=== PATIENT | male | born 1960 | race Caucasian/White ===

== ENCOUNTER → 2016-10-22 | Outpatient (REF) | payer BC ==
[2016-10-22 12:24] LABS: ALBUMIN 3.6 GM/DL (3.2-5.2); ALBUMIN/GLOBULIN RATIO 1.09 (1.00-1.93); ALKALINE PHOSPHATASE 83 U/L (45-117); ALT/SGPT 26 U/L (12-78); ANION GAP 10 MEQ/L (8-16); AST/SGOT 16 U/L (15-37); BILIRUBIN,TOTAL 0.8 MG/DL (0.2-1.0); BLOOD UREA NITROGEN 11 MG/DL (7-18); CALCIUM LEVEL 8.8 MG/DL (8.5-10.1); CARBON DIOXIDE LEVEL 26 MEQ/L (21-32); CHLORIDE LEVEL 105 MEQ/L (98-107); CHOLESTEROL LEVEL 99 MG/DL (<200); CREATININE FOR GFR 0.63 MG/DL (0.70-1.30); GLOMERULAR FILTRATION RATE > 60.0 (>56); GLUCOSE, FASTING 122 MG/DL (70-105); SODIUM LEVEL 141 MEQ/L (136-145); TOTAL PROTEIN 6.9 GM/DL (6.4-8.2); TRIGLYCERIDES LEVEL 77 MG/DL (<150)
== END ==
LOC: M SFHCCLAY 08:50
PROVIDERS: ATTEND Family Medicine
DX: E11.65 Type 2 diabetes mellitus with hyperglycemia (principal); N40.0 Benign prostatic hyperplasia without lower urinary tract symptoms
CPT/HCPCS: 80053; 80061; 82043; 83036; 84443; G0103

== ENCOUNTER → 2016-10-25 | Outpatient (REF) | payer BC | LOC: M SFHCCLAY 15:09 | PROVIDERS: ATTEND Family Medicine | DX: N30.00 Acute cystitis without hematuria (principal) ==

== ENCOUNTER → 2017-01-27 | Outpatient (REF) | payer BC ==
[2017-01-27 14:08] LABS: ALBUMIN 3.6 GM/DL (3.2-5.2); ALBUMIN/GLOBULIN RATIO 1.09 (1.00-1.93); ALKALINE PHOSPHATASE 87 U/L (45-117); ALT/SGPT 20 U/L (12-78); ANION GAP 6 MEQ/L (8-16); AST/SGOT 11 U/L (15-37); BILIRUBIN,TOTAL 0.7 MG/DL (0.2-1.0); BLOOD UREA NITROGEN 14 MG/DL (7-18); CALCIUM LEVEL 8.9 MG/DL (8.5-10.1); CARBON DIOXIDE LEVEL 30 MEQ/L (21-32); CHLORIDE LEVEL 106 MEQ/L (98-107); CHOLESTEROL LEVEL 143 MG/DL (<200); CREATININE FOR GFR 0.78 MG/DL (0.70-1.30); GLOMERULAR FILTRATION RATE > 60.0 (>56); GLUCOSE, FASTING 100 MG/DL (70-105); POTASSIUM SERUM 4.1 MEQ/L (3.5-5.1); SODIUM LEVEL 142 MEQ/L (136-145); TOTAL PROTEIN 6.9 GM/DL (6.4-8.2); TRIGLYCERIDES LEVEL 78 MG/DL (<150)
== END ==
LOC: M SFHCCLAY 06:59
PROVIDERS: ATTEND Family Medicine
DX: E78.2 Mixed hyperlipidemia (principal); E11.65 Type 2 diabetes mellitus with hyperglycemia; N40.0 Benign prostatic hyperplasia without lower urinary tract symptoms; E66.01 Morbid (severe) obesity due to excess calories
CPT/HCPCS: 80053; 80061; 83036; 84443; G0103

== ENCOUNTER → 2017-01-31 | Outpatient (REF) | payer BC ==
[2017-01-31 12:00] LABS: BASO # 0.1 K/mm3 (0.0-0.2); BASO % 0.7 % (0.0-1.0); EOS # 0.2 K/mm3 (0.0-0.50); EOS % 2.9 % (0.0-3.0); LARGE UNSTAINED CELL # 0.2 K/mm3 (0.0-0.4); LARGE UNSTAINED CELL % 2.1 % (0.0-4.0); LYMPH % 35.3 % (24.0-44.0); MEAN CORPUSCULAR HEMOGLOBIN 29.1 pg (27.0-33.0); MEAN CORPUSCULAR HGB CONC 33.2 g/dl (32.0-36.5); MEAN CORPUSCULAR VOLUME 87.4 fl (80.0-96.0); MONO # 0.6 K/mm3 (0.0-0.8); MONO % 7.6 % (0.0-5.0); NEUTROPHILS # 4.2 K/mm3 (1.8-7.7); NEUTROPHILS % 51.4 % (36.0-66.0); PLATELET COUNT, AUTOMATED 262 k/mm3 (150-450); WHITE BLOOD COUNT 8.1 K/mm3 (4.0-10.0)
[2017-01-31 12:15] LABS: VITAMIN B12 LEVEL 879 PG/ML (247-911)
[2017-01-31 12:52] LABS: ALBUMIN 3.8 GM/DL (3.2-5.2); ALBUMIN/GLOBULIN RATIO 1.19 (1.00-1.93); ALKALINE PHOSPHATASE 90 U/L (45-117); ALT/SGPT 20 U/L (12-78); ANION GAP 8 MEQ/L (8-16); AST/SGOT 11 U/L (15-37); BILIRUBIN,TOTAL 0.8 MG/DL (0.2-1.0); BLOOD UREA NITROGEN 17 MG/DL (7-18); CALCIUM LEVEL 9.1 MG/DL (8.5-10.1); CARBON DIOXIDE LEVEL 29 MEQ/L (21-32); CHLORIDE LEVEL 104 MEQ/L (98-107); FERRITIN 148 NG/ML (26-388); GLOMERULAR FILTRATION RATE > 60.0 (>56); GLUCOSE, FASTING 102 MG/DL (70-105); POTASSIUM SERUM 4.2 MEQ/L (3.5-5.1); SODIUM LEVEL 141 MEQ/L (136-145)
[2017-02-01 12:45] LABS: PRETREATED FOLATE FOR RBCFOL 12.9 NG/ML
== END ==
LOC: M LABDRAWC 11:35
PROVIDERS: ATTEND Surgery
DX: K91.2 Postsurgical malabsorption, not elsewhere classified (principal); Z98.84 Bariatric surgery status; E55.9 Vitamin D deficiency, unspecified

== ENCOUNTER → 2017-08-26 | Outpatient (REF) | payer BC ==
[2017-08-26 14:09] LABS: ALBUMIN 4.3 GM/DL (3.2-5.2); ALBUMIN/GLOBULIN RATIO 1.43 (1.00-1.93); ALKALINE PHOSPHATASE 96 U/L (45-117); ALT/SGPT 21 U/L (12-78); ANION GAP 7 MEQ/L (8-16); AST/SGOT 14 U/L (7-37); BILIRUBIN,TOTAL 0.6 MG/DL (0.2-1.0); BLOOD UREA NITROGEN 23 MG/DL (7-18); CALCIUM LEVEL 9.4 MG/DL (8.5-10.1); CARBON DIOXIDE LEVEL 30 MEQ/L (21-32); CHLORIDE LEVEL 104 MEQ/L (98-107); CHOLESTEROL LEVEL 164 MG/DL (<200); CHOLESTEROL RISK RATIO 3.037 (<5); CREATININE FOR GFR 0.79 MG/DL (0.70-1.30); GLOMERULAR FILTRATION RATE > 60.0 (>56); GLUCOSE, FASTING 122 MG/DL (70-105); HDL CHOLESTEROL 54 MG/DL (>40); LDL CHOLESTEROL 96.4 MG/DL (<100); NON-HDL-C 110 MG/DL; POTASSIUM SERUM 4.3 MEQ/L (3.5-5.1); PSA SCREENING 0.25 NG/ML (< 4.0); SODIUM LEVEL 141 MEQ/L (136-145); TOTAL PROTEIN 7.3 GM/DL (6.4-8.2); TRIGLYCERIDES LEVEL 68 MG/DL (<150)
[2017-08-26 15:41] LABS: ESTIMATED AVERAGE GLUCOSE 114 MG/DL (60-110); HEMOGLOBIN A1c 5.6 %
== END ==
LOC: M SFHCCLAY 07:10
DX: E78.2 Mixed hyperlipidemia (principal); E11.9 Type 2 diabetes mellitus without complications; N40.0 Benign prostatic hyperplasia without lower urinary tract symptoms; E66.01 Morbid (severe) obesity due to excess calories
CPT/HCPCS: 84443

== ENCOUNTER 2018-02-17 01:29 | Inpatient (IN) | payer BC ==
[2018-02-17 01:53] LABS: BASO # 0.1 10^3/uL (0.0-0.2); BASO % 0.4 % (0.0-1.0); EOS # 0.3 10^3/uL (0.0-0.50); HEMATOCRIT 41.1 % (42.0-52.0); HEMOGLOBIN 14.3 g/dl (13.5-17.5); IMMATURE GRANULOCYTE % 0.3 % (0-3.0); LYMPH # 3.9 10^3/uL (1.5-4.5); LYMPH % 33.6 % (24.0-44.0); MEAN CORPUSCULAR HEMOGLOBIN 29.5 pg (27.0-33.0); MEAN CORPUSCULAR HGB CONC 34.8 g/dl (32.0-36.5); MEAN CORPUSCULAR VOLUME 84.9 fl (80.0-96.0); MONO # 0.9 10^3/uL (0.0-0.8); MONO % 7.4 % (0.0-5.0); NEUTROPHILS # 6.4 10^3/uL (1.8-7.7); NEUTROPHILS % 55.3 % (36.0-66.0); PLATELET COUNT, AUTOMATED 237 10^3/uL (150-450); RED BLOOD COUNT 4.84 10^6/uL (4.30-6.10); RED CELL DISTRIBUTION WIDTH 12.7 % (11.5-14.5); WHITE BLOOD COUNT 11.5 10^3/uL (4.0-10.0)
[2018-02-17] MEDS: MORPHINE 10 MG/ML 1ML VIAL (J2270) IV (02:18)
[2018-02-17] MEDS: METOCLOPRAMIDE INJ 10MG/2ML VIAL (J2765) IV (02:18)
[2018-02-17] MEDS: NS 500 ML IV (02:19)
[2018-02-17 02:21] LABS: ALBUMIN 3.7 GM/DL (3.2-5.2); ALBUMIN/GLOBULIN RATIO 1.06 (1.00-1.93); ALKALINE PHOSPHATASE 90 U/L (45-117); ALT/SGPT 22 U/L (12-78); AMYLASE 65 U/L (25-115); ANION GAP 12 MEQ/L (8-16); AST/SGOT 15 U/L (7-37); BILIRUBIN,DIRECT 0.1 MG/DL (0.0-0.2); BILIRUBIN,TOTAL 0.5 MG/DL (0.2-1.0); BLOOD UREA NITROGEN 19 MG/DL (7-18); CALCIUM LEVEL 8.5 MG/DL (8.5-10.1); CARBON DIOXIDE LEVEL 23 MEQ/L (21-32); CHLORIDE LEVEL 107 MEQ/L (98-107); CK-MB VALUE MASS 1.5 NG/ML (<3.6); CPK CREATINE PHOSPHOKINASE 94 U/L (39-308); CREATININE FOR GFR 0.96 MG/DL (0.70-1.30); GLOMERULAR FILTRATION RATE > 60.0 (>56); GLUCOSE, FASTING 187 MG/DL (70-100); LIPASE 312 U/L (73-393); MB/CK RELATIVE INDEX 1.59 (< OR =4); POTASSIUM SERUM 3.5 MEQ/L (3.5-5.1); SODIUM LEVEL 142 MEQ/L (136-145); TOTAL PROTEIN 7.2 GM/DL (6.4-8.2); TROPONIN I < 0.02 NG/ML (< 0.10)
[2018-02-17 02:23] LABS: INR 1.01; PROTHROMBIN TIME 13.4 SECONDS (12.1-14.4)
[2018-02-17] MEDS: HYDROMORPHONE HCL 0.5 MG/ 0.5 ML SYRINGE (J1170 PER 1) IV (02:42)
[2018-02-17] MEDS: diphenhydrAMINE INJ 50MG/ML VIAL (J1200) IV (02:42)
[2018-02-17] MEDS: HALOPERIDOL 5 MG/ML VIAL (J1630) IV (02:42)
[2018-02-17] MEDS ORDERED: ISOVUE-370 76% 100ML VIAL (Q9967) As Ordered (02:56)
[2018-02-17] MEDS: GASTROGRAFIN SOLUTION 30ML PO ×2 (03:00→03:34)
[2018-02-17 03:10] LABS: LACTIC ACID SEPSIS PROTOCOL 3.6 MMOL/L (0.4-2.0)
[2018-02-17] MEDS: NS 1,000 ML IV ×3 (03:15→16:34)
[2018-02-17 07:00] LABS: LACTIC ACID SEPSIS PROTOCOL 1.6 MMOL/L (0.4-2.0)
[2018-02-17] MEDS: PIPERACILLIN/TAZOBACTAM SOD 3.375 GM in D5W MINI-BAG PLUS 50 ML IV ×3 (07:29→20:58)
[2018-02-17] MEDS: D5W/0.45% SODIUM CHLORIDE 1,000 ML IV (08:43)
[2018-02-17 08:59] LABS: ALBUMIN 3.3 GM/DL (3.2-5.2); ALBUMIN/GLOBULIN RATIO 1.22 (1.00-1.93); ALKALINE PHOSPHATASE 83 U/L (45-117); ALT/SGPT 19 U/L (12-78); AST/SGOT 10 U/L (7-37); BILIRUBIN,DIRECT 0.2 MG/DL (0.0-0.2); BILIRUBIN,TOTAL 0.5 MG/DL (0.2-1.0); LIPASE 78 U/L (73-393)
[2018-02-17] MEDS ORDERED: MORPHINE 4 MG/ML 1ML VIAL/SYRINGE (J2270) IV (09:30)
[2018-02-17] MEDS ORDERED: PROMETHAZINE INJ 25 MG/ML VIAL (J2550) IV (09:30)
[2018-02-17] MEDS ORDERED: ONDANSETRON 4MG/2ML VIAL (J2405) IV (09:30)
[2018-02-17] MEDS ORDERED: METOCLOPRAMIDE INJ 10MG/2ML VIAL (J2765) IV (09:30)
[2018-02-17] MEDS: PANTOPRAZOLE 40MG INJ (PROTONIX) (C9113) IV (16:34)
[2018-02-17] MEDS: SUCRALFATE SUSP 1GM/10ML UD PO ×2 (16:35→18:38)
[2018-02-17] MEDS: TAMSULOSIN 0.4 MG CAP PO (20:58)
[2018-02-17] MEDS: MORPHINE 4 MG/ML 1ML VIAL/SYRINGE (J2270) IV (20:58)
[2018-02-18] MEDS: SUCRALFATE SUSP 1GM/10ML UD PO ×4 (00:16→17:29)
[2018-02-18] MEDS: NS 1,000 ML IV ×2 (02:00→02:25)
[2018-02-18] MEDS: PIPERACILLIN/TAZOBACTAM SOD 3.375 GM in D5W MINI-BAG PLUS 50 ML IV ×4 (02:24→20:53)
[2018-02-18 06:44] LABS: HEMATOCRIT 35.4 % (42.0-52.0); MEAN CORPUSCULAR HGB CONC 34.2 g/dl (32.0-36.5); MEAN CORPUSCULAR VOLUME 87.6 fl (80.0-96.0); PLATELET COUNT, AUTOMATED 185 10^3/uL (150-450); RED BLOOD COUNT 4.04 10^6/uL (4.30-6.10); RED CELL DISTRIBUTION WIDTH 12.9 % (11.5-14.5); WHITE BLOOD COUNT 9.8 10^3/uL (4.0-10.0)
[2018-02-18 06:49] LABS: HEMOGLOBIN 12.1 g/dl (13.5-17.5)
[2018-02-18 07:13] LABS: ALBUMIN 2.8 GM/DL (3.2-5.2); ALKALINE PHOSPHATASE 68 U/L (45-117); ALT/SGPT 17 U/L (12-78); ANION GAP 7 MEQ/L (8-16); AST/SGOT 9 U/L (7-37); BILIRUBIN,TOTAL 0.9 MG/DL (0.2-1.0); BLOOD UREA NITROGEN 13 MG/DL (7-18); CALCIUM LEVEL 7.9 MG/DL (8.5-10.1); CARBON DIOXIDE LEVEL 28 MEQ/L (21-32); CHLORIDE LEVEL 109 MEQ/L (98-107); CREATININE FOR GFR 0.82 MG/DL (0.70-1.30); GLOMERULAR FILTRATION RATE > 60.0 (>56); GLUCOSE, FASTING 100 MG/DL (70-100); POTASSIUM SERUM 3.5 MEQ/L (3.5-5.1); SODIUM LEVEL 144 MEQ/L (136-145); TOTAL PROTEIN 5.6 GM/DL (6.4-8.2)
[2018-02-18] MEDS: PANTOPRAZOLE 40MG INJ (PROTONIX) (C9113) IV (08:30)
[2018-02-18] MEDS: TAMSULOSIN 0.4 MG CAP PO (20:53)
[2018-02-19] MEDS: SUCRALFATE SUSP 1GM/10ML UD PO ×2 (00:10→06:07)
[2018-02-19] MEDS: PIPERACILLIN/TAZOBACTAM SOD 3.375 GM in D5W MINI-BAG PLUS 50 ML IV ×2 (02:35→08:09)
[2018-02-19 06:50] LABS: HEMATOCRIT 35.8 % (42.0-52.0); HEMOGLOBIN 12.2 g/dl (13.5-17.5); MEAN CORPUSCULAR HEMOGLOBIN 29.6 pg (27.0-33.0); MEAN CORPUSCULAR HGB CONC 34.1 g/dl (32.0-36.5); MEAN CORPUSCULAR VOLUME 86.9 fl (80.0-96.0); PLATELET COUNT, AUTOMATED 184 10^3/uL (150-450); RED BLOOD COUNT 4.12 10^6/uL (4.30-6.10); RED CELL DISTRIBUTION WIDTH 12.5 % (11.5-14.5); WHITE BLOOD COUNT 9.5 10^3/uL (4.0-10.0)
[2018-02-19 07:11] LABS: ALBUMIN 2.8 GM/DL (3.2-5.2); ALBUMIN/GLOBULIN RATIO 1.04 (1.00-1.93); ALKALINE PHOSPHATASE 69 U/L (45-117); ALT/SGPT 15 U/L (12-78); ANION GAP 7 MEQ/L (8-16); AST/SGOT 9 U/L (7-37); BILIRUBIN,TOTAL 0.7 MG/DL (0.2-1.0); BLOOD UREA NITROGEN 9 MG/DL (7-18); CALCIUM LEVEL 8.1 MG/DL (8.5-10.1); CARBON DIOXIDE LEVEL 28 MEQ/L (21-32); CHLORIDE LEVEL 109 MEQ/L (98-107); CREATININE FOR GFR 0.76 MG/DL (0.70-1.30); GLOMERULAR FILTRATION RATE > 60.0 (>56); GLUCOSE, FASTING 91 MG/DL (70-100); POTASSIUM SERUM 3.5 MEQ/L (3.5-5.1); SODIUM LEVEL 144 MEQ/L (136-145); TOTAL PROTEIN 5.5 GM/DL (6.4-8.2)
[2018-02-19] MEDS: PANTOPRAZOLE 40MG INJ (PROTONIX) (C9113) IV (09:22)
== END 2018-02-19 10:40 | disposition home or self-care (01) ==
LOC: M PED 02-18 18:21 → M ED 01:29 → M ED INP 09:25 → M MS5PR 16:00
DX: K80.00 Calculus of gallbladder with acute cholecystitis without obstruction (principal); E11.9 Type 2 diabetes mellitus without complications; E78.5 Hyperlipidemia, unspecified; N40.0 Benign prostatic hyperplasia without lower urinary tract symptoms; K21.9 Gastro-esophageal reflux disease without esophagitis; E78.00 Pure hypercholesterolemia, unspecified; Z98.84 Bariatric surgery status; Z79.899 Other long term (current) drug therapy

== ENCOUNTER → 2018-03-14 | Outpatient (REF) | payer BC ==
[2018-03-14 12:02] LABS: TOTAL 25(OH) VITAMIN D 34.3 NG/ML (30.0-100.0)
[2018-03-14 12:09] LABS: MAGNESIUM LEVEL 2.1 MG/DL (1.8-2.4)
== END ==
LOC: M LABDRAWC 11:32
DX: K21.9 Gastro-esophageal reflux disease without esophagitis (principal); K31.89 Other diseases of stomach and duodenum
CPT/HCPCS: 83735

== ENCOUNTER → 2018-03-14 | Outpatient (REF) | payer BC ==
[2018-03-14 12:31] LABS: ALBUMIN 3.8 GM/DL (3.2-5.2); ALBUMIN/GLOBULIN RATIO 1.23 (1.00-1.93); ALKALINE PHOSPHATASE 85 U/L (45-117); ALT/SGPT 22 U/L (12-78); ANION GAP 7 MEQ/L (8-16); AST/SGOT 11 U/L (7-37); BILIRUBIN,TOTAL 0.7 MG/DL (0.2-1.0); BLOOD UREA NITROGEN 16 MG/DL (7-18); CALCIUM LEVEL 8.9 MG/DL (8.5-10.1); CARBON DIOXIDE LEVEL 30 MEQ/L (21-32); CHLORIDE LEVEL 107 MEQ/L (98-107); CHOLESTEROL LEVEL 144 MG/DL (<200); CREATININE FOR GFR 0.76 MG/DL (0.70-1.30); GLOMERULAR FILTRATION RATE > 60.0 (>56); GLUCOSE, FASTING 102 MG/DL (70-100); HDL CHOLESTEROL 45 MG/DL (>40); LDL CHOLESTEROL 84.8 MG/DL (<100); NON-HDL-C 99 MG/DL; POTASSIUM SERUM 4.3 MEQ/L (3.5-5.1); SODIUM LEVEL 144 MEQ/L (136-145); TOTAL PROTEIN 6.9 GM/DL (6.4-8.2); TRIGLYCERIDES LEVEL 71 MG/DL (<150)
[2018-03-14 12:39] LABS: ESTIMATED AVERAGE GLUCOSE 105 MG/DL (60-110); HEMOGLOBIN A1c 5.3 %
== END ==
LOC: M SFHCCLAY 07:00
DX: E78.2 Mixed hyperlipidemia (principal); E11.9 Type 2 diabetes mellitus without complications; E66.01 Morbid (severe) obesity due to excess calories
CPT/HCPCS: 84443

== ENCOUNTER 2018-06-08 10:20 | Day surgery (SDC) | payer BC ==
[~2018-06-08 10:20] MED LIST: LIDOCAINE 2% MDV 20 ML VIAL As Ordered; PROPOFOL 200 MG/20 ML VIAL As Ordered
[2018-06-08] MEDS: NS 1,000 ML IV (10:30)
== END 2018-06-08 13:27 | disposition home or self-care (01) ==
LOC: M OPP 13:27
DX: K22.70 Barrett's esophagus without dysplasia (principal); Z98.84 Bariatric surgery status; E11.9 Type 2 diabetes mellitus without complications; K21.9 Gastro-esophageal reflux disease without esophagitis; N40.0 Benign prostatic hyperplasia without lower urinary tract symptoms; M17.0 Bilateral primary osteoarthritis of knee; Z79.899 Other long term (current) drug therapy
CPT/HCPCS: 43239

== ENCOUNTER → 2018-09-15 | Outpatient (REF) | payer BC ==
[~2018-09-15] MED LIST changes: +AUGM500T34 PO; +CALC600T60 PO; +FLOM0.4C39 PO; -LIDOCAINE 2% MDV 20 ML VIAL As Ordered; +OMEP20CA3 PO; +OMEP40CA2 PO; -PROPOFOL 200 MG/20 ML VIAL As Ordered; +TAMSULOSIN; +VITA100066 PO; +VITMTA PO
[2018-09-15 12:03] LABS: BASO # 0.1 10^3/uL (0.0-0.2); BASO % 0.8 % (0.0-1.0); EOS # 0.3 10^3/uL (0.0-0.50); EOS % 3.5 % (0.0-3.0); HEMATOCRIT 40.9 % (42.0-52.0); HEMOGLOBIN 13.8 g/dl (13.5-17.5); LYMPH # 3.1 10^3/uL (1.5-4.5); LYMPH % 41.2 % (24.0-44.0); MEAN CORPUSCULAR HEMOGLOBIN 29.6 pg (27.0-33.0); MEAN CORPUSCULAR HGB CONC 33.7 g/dl (32.0-36.5); MEAN CORPUSCULAR VOLUME 87.6 fl (80.0-96.0); MONO # 0.7 10^3/uL (0.0-0.8); MONO % 9.7 % (0.0-5.0); NEUTROPHILS # 3.3 10^3/uL (1.8-7.7); NEUTROPHILS % 44.5 % (36.0-66.0); PLATELET COUNT, AUTOMATED 230 10^3/uL (150-450); RED BLOOD COUNT 4.67 10^6/uL (4.30-6.10); WHITE BLOOD COUNT 7.5 10^3/uL (4.0-10.0)
[2018-09-15 12:16] LABS: MALB URINE SIEMENS 18.3 MG/L; MAU/CREAT RATIO 7.6 MCG/MG (0.0-30.0)
[2018-09-15 12:52] LABS: ALBUMIN 3.9 GM/DL (3.2-5.2); ALT/SGPT 23 U/L (12-78); BILIRUBIN,TOTAL 0.6 MG/DL (0.2-1.0); BLOOD UREA NITROGEN 13 MG/DL (7-18); CALCIUM LEVEL 8.6 MG/DL (8.5-10.1); CARBON DIOXIDE LEVEL 28 MEQ/L (21-32); CHLORIDE LEVEL 107 MEQ/L (98-107); CHOLESTEROL LEVEL 142 MG/DL (<200); CREATININE FOR GFR 0.77 MG/DL (0.70-1.30); FERRITIN 107 NG/ML (26-388); GLOMERULAR FILTRATION RATE > 60.0 (>56); GLUCOSE, FASTING 100 MG/DL (70-100); HDL CHOLESTEROL 50 MG/DL (>40); IRON (FE) 106 UG/DL (65-175); LDL CHOLESTEROL 79 MG/DL (<100); NON-HDL-C 92 MG/DL; POTASSIUM SERUM 4.2 MEQ/L (3.5-5.1); SODIUM LEVEL 142 MEQ/L (136-145); TOTAL PROTEIN 6.6 GM/DL (6.4-8.2); TRIGLYCERIDES LEVEL 65 MG/DL (<150)
[2018-09-15 13:29] LABS: HEMOGLOBIN A1c 5.6 %
[2018-09-18 10:33] LABS: VITAMIN B12 LEVEL 1155 PG/ML (232-1245)
== END ==
LOC: M SFHCCLAY 07:06
PROVIDERS: ATTEND Nurse Practitioner Family
DX: Z98.84 Bariatric surgery status (principal); E78.2 Mixed hyperlipidemia; E11.9 Type 2 diabetes mellitus without complications

== ENCOUNTER 2018-09-17 19:39 | Inpatient (IN) | payer BC ==
[~2018-09-17] VITALS: Ht 198.1 cm; Wt 103.8 kg
[~2018-09-17 19:39] MED LIST changes: -VITMTA PO
[2018-09-17] MEDS ORDERED: HALOPERIDOL 5 MG/ML VIAL (J1630) IV STA (19:58)
[2018-09-17] MEDS ORDERED: diphenhydrAMINE INJ 50MG/ML VIAL (J1200) IV STA (19:58)
[2018-09-17] MEDS ORDERED: MORPHINE 2 MG/ML 1ML SYRINGE (J2270) IV ONE (20:00)
[2018-09-17] MEDS ORDERED: NS 1,000 ML IV ONE ×2 (20:00→21:30)
[2018-09-17 20:15] LABS: BASO # 0.1 10^3/uL (0.0-0.2); BASO % 0.4 % (0.0-1.0); EOS # 0.1 10^3/uL (0.0-0.50); EOS % 0.9 % (0.0-3.0); HEMATOCRIT 42.6 % (42.0-52.0); HEMOGLOBIN 14.8 g/dl (13.5-17.5); LYMPH # 2.4 10^3/uL (1.5-4.5); LYMPH % 16.4 % (24.0-44.0); MEAN CORPUSCULAR HEMOGLOBIN 29.8 pg (27.0-33.0); MEAN CORPUSCULAR HGB CONC 34.7 g/dl (32.0-36.5); MEAN CORPUSCULAR VOLUME 85.7 fl (80.0-96.0); MONO # 0.7 10^3/uL (0.0-0.8); MONO % 4.5 % (0.0-5.0); NEUTROPHILS # 11.2 10^3/uL (1.8-7.7); NEUTROPHILS % 77.5 % (36.0-66.0); PLATELET COUNT, AUTOMATED 248 10^3/uL (150-450); RED BLOOD COUNT 4.97 10^6/uL (4.30-6.10); WHITE BLOOD COUNT 14.5 10^3/uL (4.0-10.0)
[2018-09-17 21:06] LABS: ALBUMIN 4.2 GM/DL (3.2-5.2); ALT/SGPT 27 U/L (12-78); BILIRUBIN,DIRECT 0.1 MG/DL (0.0-0.2); BILIRUBIN,TOTAL 0.5 MG/DL (0.2-1.0); BLOOD UREA NITROGEN 16 MG/DL (7-18); CALCIUM LEVEL 8.8 MG/DL (8.5-10.1); CARBON DIOXIDE LEVEL 24 MEQ/L (21-32); CHLORIDE LEVEL 104 MEQ/L (98-107); CPK CREATINE PHOSPHOKINASE 133 U/L (39-308); CREATININE FOR GFR 0.91 MG/DL (0.70-1.30); GLOMERULAR FILTRATION RATE > 60.0 (>56); GLUCOSE, FASTING 180 MG/DL (70-100); LIPASE 171 U/L (73-393); MB/CK RELATIVE INDEX 1.65 (< OR =4); SODIUM LEVEL 139 MEQ/L (136-145); TOTAL PROTEIN 7.2 GM/DL (6.4-8.2); TROPONIN I < 0.02 NG/ML (< 0.10)
[2018-09-17] MEDS ORDERED: MORPHINE 4 MG/ML 1ML VIAL/SYRINGE (J2270) IV ONE (22:00)
[2018-09-17] MEDS ORDERED: METOCLOPRAMIDE INJ 10MG/2ML VIAL (J2765) IV ONE (22:00)
--- NOTE | 2018-09-17 22:14 | REPVR ---
EXAM: US Abdomen Limited, Right Upper Quadrant EXAM DATE/TIME: 09/17/2018 9:17 PM CLINICAL HISTORY: 57 years old, male; Pain; Abdominal pain; Acute; Additional info: Biliary eval TECHNIQUE: Real-time ultrasound of the abdomen with image documentation. Examination was focused on the right upper quadrant. COMPARISON: GALLBLADDER US 02/17/2018 10:32 AM FINDINGS: Liver: The liver is mildly diffusely echogenic relative to the right kidney, findings consistent with steatosis. Gallbladder: Cholelithiasis and sludge within the lumen of the gallbladder. Thickened gallbladder wall. Positive sonographic Kearney's sign. Findings consistent with acute cholecystitis. Common bile duct: Common bile duct measures 3.3 mm. Pancreas: Pancreas largely obscured by overlying bowel gas. Right kidney: Right kidney measures 11.7 x 5.3 x 5.3 cm. IMPRESSION: 1. Hepatic steatosis. 2. Cholelithiasis and sludge within the lumen of the gallbladder. Thickened gallbladder wall. Positive sonographic Kearney's sign. Findings consistent with acute cholecystitis. Electronically signed by: Giovanni Dumont On 09/17/2018 22:14:04 PM
[2018-09-17] MEDS: GASTROGRAFIN SOLUTION 30ML PO SCH (22:56)
[2018-09-17] MEDS ORDERED: VITMTA PO (23:20)
[2018-09-17] MEDS ORDERED: OMEP40CA2 PO (23:20)
--- NOTE | 2018-09-18 01:38 | REPVR ---
EXAM: CT Abdomen and Pelvis Without Contrast EXAM DATE/TIME: 09/18/2018 12:31 AM CLINICAL HISTORY: 57 years old, male; Pain; Abdominal pain; Additional info: Pain/emesis TECHNIQUE: Axial computed tomography images of the abdomen and pelvis without contrast. All CT scans at this facility use at least one of these dose optimization techniques: automated exposure control; mA and/or kV adjustment per patient size (includes targeted exams where dose is matched to clinical indication); or iterative reconstruction. Coronal and sagittal reformatted images were created and reviewed. COMPARISON: CT ABD/PEL W/IV ORAL CONTRAS 02/17/2018 5:04 AM FINDINGS: Lower thorax: No suspicious mass or airspace process in the visualized lung bases. ABDOMEN: Liver: Noncontrast liver shows no obvious lesion. Gallbladder and bile ducts: Gallstones are present in the gallbladder lumen. No adjacent fluid or duct dilatation. Pancreas: Noncontrast pancreas shows no obvious mass or adjacent fluid. Spleen: Noncontrast spleen shows no obvious focal deformity. Adrenals: Stable 1 cm left adrenal adenoma. Right adrenal is normal in size. Kidneys and ureters: Kidneys show no stone or hydronephrosis. Stomach and bowel: No evidence of small bowel obstruction. No evidence of acute diverticulitis. Postsurgical changes of gastric bypass procedure are present. Appendix: Normal caliber appendix is identified, with no adjacent inflammation. PELVIS: Bladder: Bladder appears normal. Bladder appears normal. Reproductive: Unremarkable as visualized. ABDOMEN and PELVIS: Intraperitoneal space: No pneumoperitoneum. Bones/joints: Bony structures show no acute fracture or destructive process. Soft tissues: Unremarkable. Vasculature: Normal. No abdominal aortic aneurysm. Lymph nodes: Normal. No enlarged lymph nodes. Other findings: Evaluation of solid organs is limited without IV contrast. IMPRESSION: 1. Cholelithiasis without evidence of biliary obstruction. 2. No acute bowel process or evidence of complication regarding the gastric diversion procedure Electronically signed by: Art Aguilera On 09/18/2018 01:37:48 AM
[2018-09-18] MEDS ORDERED: ONDANSETRON 4MG/2ML VIAL (J2405) IV PRN (03:30)
[2018-09-18 04:30] VITALS: BP 159/76
[2018-09-18] MEDS: MORPHINE 4 MG/ML 1ML VIAL/SYRINGE (J2270) IV PRN ×2 (04:38→13:07)
[2018-09-18] MEDS: NS 1,000 ML IV SCH ×2 (04:38→15:48)
--- NOTE | 2018-09-18 04:50 | HPEPDOC ---
[facility] Medical History & Physical Date of Admission Sep 18, 2018 Other Provider Dictating/admitting: Valerie Orosco M.D. Attending Physician: JIE NGUYEN MD History and Physical CHIEF COMPLAINT: Abdominal pain HISTORY OF PRESENT ILLNESS: Patient is a 57-year-old man with history of diabetes, hyperlipidemia, sleep apnea, Goodrich's esophagus, status post gastric bypass done in 2015. He comes complaining of nausea with vomiting of recently ingested food, nonbilious, nonblood. Symptom started 3 AM yesterday. He denies any association with recently ingested food. He refers right upper quadrant pain initially, before radiating to the epigastrium. He denies any associated fever and chills. No dizziness, no chest pain, no palpitations, no cough or shortness of breath. No change in his bowel habits. No change in his urinary habits. He was evaluated in the emergency room with a liter of IV fluids and imaging, which reveals cholelithiasis with cholecystitis. General surgery on consult was consu lted, Dr. Lau recommendation is continue with IV fluids and he will see patient in the morning. PAST MEDICAL HISTORY: Per HPI PAST SURGICAL HISTORY: 1. Left knee arthroplasty 1979. 2. Endoscopy 2015. 3. Gastric bypass July 2016. 4. Umbilical hernia repair June 2017. SOCIAL HISTORY: Former smoker, quit over 10 years. Denies use of alcohol and illicit drugs. FAMILY HISTORY: Father: , unknown cause. Mother: , unknown cause. Siblings: 3 brothers and one sister, 2 brothers from cancer. ALLERGIES: Please see below. REVIEW OF SYSTEMS: He denies any associated fever and chills. No dizziness, no chest pain, no palpitations, no cough or shortness of breath. No change in his bowel habits. Other systems reviewed. Negative. A 12 point review of systems done. HOME MEDICATIONS: Please see below. PHYSICAL EXAMINATION: VITAL SIGNS: Temperature 98.6, pulse 122, respiratory rate 18, blood pressure 119/78, pulse oximetry 100% on room air. GENERAL APPEARANCE: An obese middle aged man, now lying calmly in bed, not in any apparent distress. He is not pale, anicteric and afebrile HEENT: Atraumatic. Neck: Supple. LUNGS: Clear to auscultation bilaterally. CARDIOVASCULAR: S1 and 2 heard, no murmurs, rubs or gallops. ABDOMEN: Obese, soft, tenderness at RUQ and epigastrum, not distended. Bowel sounds hypoactive. MUSCULOSKELETAL: Apparently within normal limits. EXTREMITIES: No pedal edema, 2+ bilateral pedal pulses noted. NEUROLOGICAL: Awake, alert, oriented 3. PSYCHIATRIC: Normal affect LABORATORY DATA: See below. IMAGING: CT abdomen and pelvis without contrast: 1. Cholelithiasis without evidence of biliary obstruction. 2. No acute bowel process or evidence of complication regarding the gastric diversion procedure Abdominal ultrasound: 1. Hepatic steatosis. 2. Cholelithiasis and sludge within the lumen of the gallbladder. Thickened gallbladder wall. Positive sonographic Kearney's sign. Findings consistent with acute cholecystitis. Chest x-ray: No acute process. MICROBIOLOGY: Please see below. ASSESSMENT: 57-year-old man with diabetes and lipid disorder, sleep apnea, Barretts esophagus, status post gastric bypass, comes in complaining of vomiting of one days duration. Physical exam significant for right upper qu adrant/epigastric tenderness. CT abdomen and pelvis/abdominal ultrasound reveals cholecystitis. DIAGNOSES: 1. Gastritis, likely secondary to cholecystitis 2. Acute Cholecystitis . PLAN: 1. I will admit patient to the medical floors under care of Dr Nguyen. 2. Patient remained nothing by mouth for now. 3. Will continue with IV normal saline to run at 100 mils per hour. 4. Cholecystitis, Gen. surgery consult placed to Dr. Lau. Patient may be a candidate for cholecystectomy after medical management. 5. Diabetes: Patient is nothing by mouth for now, we will continue with fingersticks glucose monitoring without coverage insulin should only be used when necessary. 6. GI prophylaxis with Protonix. 7. Will ensure adequate pain control. No indication for antibiotics at this time. 8. DVT prophylaxis, TEDs. 9. As soon as patient can tolerate by mouth she she will restart outpatient medications. 10. IV Zofran when necessary nausea and vomiting. 11. Further management will be per patient's clinical course. Vital Signs Vital Signs Date Time Temp Pulse Resp B/P (MAP) Pulse Ox O2 Delivery O2 Flow Rate FiO2 09/18/18 00:14 98.6 122 18 119/78 (92) 100 Room Air Laboratory Data Labs 24H Laboratory Tests 2 09/17/18 20:08: Lactic Acid Level 3.3*H 09/17/18 20:09: Immature Granulocyte % (Auto) 0.3, White Blood Count 14.5H, Red Blood Count 4.97, Hemoglobin 14.8, Hematocrit 42.6, Mean Corpuscular Volume 85.7, Mean Corpuscular Hemoglobin 29.8, Mean Corpuscular Hemoglobin Concent 34.7, Red Cell Distribution Width 12.5, Platelet Count 248, Neutrophils (%) (Auto) 77.5H, L ymphocytes (%) (Auto) 16.4L, Monocytes (%) (Auto) 4.5, Eosinophils (%) (Auto) 0.9, Basophils (%) (Auto) 0.4, Neutrophils # (Auto) 11.2H, Lymphocytes # (Auto) 2.4, Monocytes # (Auto) 0.7, Eosinophils # (Auto) 0.1, Basophils # (Auto) 0.1, Nucleated Red Blood Cells % (auto) 0.0, Anion Gap 11, Glomerular Filtration Rate > 60.0, Calcium Level 8.8, Aspartate Amino Transf (AST/SGOT) 22, Alanine Aminotransferase (ALT/SGPT) 27, Alkaline Phosphatase 78, Total Bilirubin 0.5, Direct Bilirubin 0.1, Total Creatine Kinase 133, Creatine Kinase MB 2.0, Creatine Kinase MB Relative Index 1.65, Troponin I < 0.02, Total Protein 7.2, Albumin 4.2, Albumin/Globulin Ratio 1.40, Lipase 171 CBC/BMP Laboratory Tests 09/17/18 20:09 Red Blood Count 4.97, Mean Corpuscular Volume 85.7, Mean Corpuscular Hemoglobin 29.8, Mean Corpuscular Hemoglobin Concent 34.7, Red Cell Distribution Width 12.5, Neutrophils (%) (Auto) 77.5 H, Lymphocytes (%) (Auto) 16.4 L, Monocytes (%) (Auto) 4.5, Eosinophils (%) (Auto) 0.9, Basophils (%) (Auto) 0.4, Neutrophils # (Auto) 11.2 H, Lymphocytes # (Auto) 2.4, Monocytes # (Auto) 0.7, Eosinophils # (Auto) 0.1, Basophils # (Auto) 0.1 Home Medications Scheduled Calcium Carbonate (Calcium) 600 Mg Tab, 600 MG PO DAILY Cholecalciferol (Vitamin D) 1,000 Unit Tab, 1,000 UNIT PO DAILY Multivitamins *[facility] STOCKED* (Thera M Plus *[facility] STOCKED*) 1 Tab Tab, 1 TAB PO DAILY Omeprazole (Omeprazole) 40 Mg Cap, 40 MG PO DAILY Tamsulosin Hydrochloride (Flomax) 0.4 Mg Cap, 0.4 MG PO QHS Allergies Coded Allergies: No Known Drug Allergy (Verified Allergy, Unknown, 09/17/18) VALERIE OROSCO MD Sep 18, 2018 03:28
[2018-09-18] MEDS: PANTOPRAZOLE 40MG INJ (PROTONIX) (C9113) IV SCH (05:41)
[2018-09-18 06:40] LABS: HEMATOCRIT 38.7 % (42.0-52.0); HEMOGLOBIN 13.5 g/dl (13.5-17.5); MEAN CORPUSCULAR HEMOGLOBIN 30.1 pg (27.0-33.0); MEAN CORPUSCULAR HGB CONC 34.9 g/dl (32.0-36.5); MEAN CORPUSCULAR VOLUME 86.4 fl (80.0-96.0); PLATELET COUNT, AUTOMATED 232 10^3/uL (150-450); RED BLOOD COUNT 4.48 10^6/uL (4.30-6.10); WHITE BLOOD COUNT 13.4 10^3/uL (4.0-10.0)
[2018-09-18 06:50] LABS: INR 1.05; PROTHROMBIN TIME 13.8 SECONDS (12.1-14.4)
[2018-09-18 06:54] LABS: BLOOD UREA NITROGEN 14 MG/DL (7-18); CARBON DIOXIDE LEVEL 26 MEQ/L (21-32); CHLORIDE LEVEL 107 MEQ/L (98-107); CREATININE FOR GFR 0.71 MG/DL (0.70-1.30); GLOMERULAR FILTRATION RATE > 60.0 (>56); GLUCOSE, FASTING 116 MG/DL (70-100); POTASSIUM SERUM 3.7 MEQ/L (3.5-5.1); SODIUM LEVEL 140 MEQ/L (136-145)
--- NOTE | 2018-09-18 08:03 | REP ---
Portable chest, 09:28 p.m., single AP view, the patient upright: The lung hays are clear. Cardiac size is upper normal for portable positioning. The silvana, mediastinum, and skeletal structures are unremarkable. No mediastinal air is identified on this single frontal view. Impression: Negative portable chest. Electronically Signed by Rahul Conn MD 09/18/2018 07:55 A
[2018-09-18] MEDS: CIPROFLOXACIN 400 MG in APPROPRIATE DILUENT 1 EA IV SCH ×2 (09:24→22:14)
[2018-09-18] MEDS: metroNIDAZOLE 500 MG in APPROPRIATE DILUENT 1 EA IV SCH ×2 (09:25→18:23)
[2018-09-18 14:00] VITALS: BP 141/82
[2018-09-18] MEDS: KETOROLAC 30 MG/ML VIAL (J1885) IV PRN (15:49)
--- NOTE | 2018-09-18 16:12 | IPNPDOC ---
Text Note Date of Service The patient was seen on 09/18/18. NOTE Patient seen this morning, and denies any acute changes since admission. Abdo tim pain improving mild epigastric discomforts, however no rebound guarding or rigidity. Denies any other complaints. Given the patient's leukocytosis, lactic acidosis on admission that's improved, as well as tachycardia on admission that's improved, and right upper quadrant ultrasound with notable acute cholecystitis, I have placed the patient on Cipro/Flagyl. It appears that Dr. Lau has been consulted on admission. Toradol for pain. The patient is hemodynamically stable. I have signed this patient out to Dr. Cisse, as this is a patient of Ariella Sahara. The family medicine team will continue to follow this patient thereafter. VS,Fishbone, I+O VS, Fishbone, I+O Laboratory Tests 09/17/18 20:09 Red Blood Count 4.97, Mean Corpuscular Volume 85.7, Mean Corpuscular Hemoglobin 29.8, Mean Corpuscular Hemoglobin Concent 34.7, Red Cell Distribution Width 12.5, Neutrophils (%) (Auto) 77.5 H, Lymphocytes (%) (Auto) 16.4 L, Monocytes (%) (Auto) 4.5, Eosinophils (%) (Auto) 0.9, Basophils (%) (Auto) 0.4, Neutrophils # (Auto) 11.2 H, Lymphocytes # (Auto) 2.4, Monocytes # (Auto) 0.7, Eosinophils # (Auto) 0.1, Basophils # (Auto) 0.1 09/18/18 06:11 Red Blood Count 4.48, Mean Corpuscular Volume 86.4, Mean Corpuscular Hemoglobin 30.1, Mean Corpuscular Hemoglobin Concent 34.9, Red Cell Distribution Width 12.5, Calcium Level 8.0 L Vital Signs Date Time Temp Pulse Resp B/P (MAP) Pulse Ox O2 Delivery O2 Flow Rate FiO2 09/18/18 14:00 98.3 49 18 141/82 (101) 98 09/18/18 04:07 Room Air I&O- Last 24 Hours up to 6 AM 09/18/18 06:00 Intake Total 1000 ml Balance 1000 ml JIE NGUYEN MD Sep 18, 2018 16:12
[2018-09-18 22:00] VITALS: BP 135/68
[2018-09-19] MEDS: metroNIDAZOLE 500 MG in APPROPRIATE DILUENT 1 EA IV SCH ×3 (01:59→17:19)
[2018-09-19] MEDS: NS 1,000 ML IV SCH ×2 (02:02→09:13)
[2018-09-19] MEDS: PANTOPRAZOLE 40MG INJ (PROTONIX) (C9113) IV SCH (05:59)
[2018-09-19 06:00] VITALS: BP 108/56
--- NOTE | 2018-09-19 07:49 | CR ---
DATE OF CONSULTATION: 09/18/2018 The patient was admitted in the middle of the night with some epigastric pain and pain all across his upper abdomen to the hospital service and has had a similar episode with admission about 6 months ago. However, at this time, he states that the pain really did start in his right upper quadrant and radiated up into his epigastric area into his back. His lactic acid was elevated initially but it dropped down to normal. He notices that the pain was quite severe and he had nausea, vomiting with multiple episodes of vomiting he states over 10-15. He did not have any hematemesis. CT scan did not reveal an obstructive looking picture or a volvulus. CT scan revealed no significant inflammation of his gallbladder but the ultrasound showed possible thickening of the gallbladder wall. PAST MEDICAL HISTORY: Significant for: History of gastric bypass. Umbilical hernia repair. Left knee surgery. Upper endoscopy. Diabetes mellitus. Hyperlipidemia. Sleep apnea. Goodrich's esophagus. MEDICATIONS: Include: - calcium - vitamin D - multivitamins - omeprazole - Flomax PHYSICAL EXAM: Reveals a 57-year-old male who looks stated age. HEENT is unremarkable. Neck: Supple without adenopathy. Lungs: Clear to auscultation without crackles, wheezes or rhonchi. Heart is regular without murmur. Abdomen is soft, nondistended. He really does not have any significant tenderness or guarding in the right upper quadrant or in the epigastric area at this point even to deep palpation. He states that this has relatively resolved overnight. He had another episode earlier in the day today that caused some exacerbation but had gotten some pain medication and once again noticed that most of the pain is gone away. Extremities: Warm, well-perfused. IMPRESSION AND PLAN: The patient had evidence of abdominal pain. I do feel that the gallbladder is somewhat contracted on the ultrasound. It is hard to tell if this is truly cholecystitis but I feel that his history is much more consistent with a bout of cholecystitis. I am not sure why he developed a second episode of pain as well as his white count being elevated significantly like this suggests that I should see much more of an inflammatory process in his gallbladder. Thus at this point, I would like to get a HIDA scan in the morning, we will see what that shows and depending on what that shows, next appropriate action might be to proceed with operative intervention while he is here in the hospital, i.e. laparoscopic cholecystectomy or possibly proceeding as an outpatient. We will see how he does overnight and plan on the HIDA in the morning.
[2018-09-19] MEDS: CIPROFLOXACIN 400 MG in APPROPRIATE DILUENT 1 EA IV SCH ×2 (09:12→22:30)
--- NOTE | 2018-09-19 11:28 | IPNPDOC ---
Subjective Date Seen The patient was seen on 09/19/18. Subjective Chief Complaint/HPI Pt this morning feeling good. He states that his abd pain has resolved, denies N/V/D. General: Denies: Night Sweats Constitutional: Denies: Chills, Fever Pulmonary: Denies: Dyspnea, Cough Cardiovascular: Denies: Chest Pain, Palpitations Gastrointestinal: Denies: Nausea, Vomiting, Diarrhea Neurological: Reports: Weakness Objective Physical Examination General Exam: Positive: Alert, Cooperative, No Acute Distress ENT Exam: Positive: Mucous membr. moist/pink Chest Exam: Positive: Clear to auscultation, Normal air movement Heart Exam: Positive: Rate Normal, Normal S1, Normal S2 Abdomen Exam: Positive: Normal bowel sounds, Soft, Tenderness (mild on deep palpation in the right upper quadrant) Male Exam: Positive: Edema Extremity Exam: Positive: Edema Assessment /Plan Problems (1) Cholecystitis Status: Acute Response to Treatment: Stable, Improving Problem Text: IV Flagyl, Cipro D2, afebrile, mild leukocystosis, repeat BW today. Cont NPO until surgical status determined Plan/VTE VTE Prophylaxis Ordered?: Yes (TEDS, SCDs) Plan Family Medicine Attending Note: I saw and examined Mr. Chino, discussed with OSCAR Alberts. Agree with her note as documented. The patient reports she is comfortable. He had a discussion this afternoon with Dr. Lau regarding his HIDA scan. That shows cholecystitis. Since this is the second time he's had a flare of abdominal pain related to the cholecystitis they're going to move forward with removing his gallbladder during this admission. The patient anticipates this will be done on . We will need to do a further evaluation and provide a preoperative optimization statement tomorrow. (logistics/shipper) VS, I&O, 24H, Fishbone Vital Signs/I&O Vital Signs Date Time Temp Pulse Resp B/P (MAP) Pulse Ox O2 Delivery O2 Flow Rate FiO2 09/19/18 06:00 97.8 68 18 108/56 (73) 97 09/18/18 04:07 Room Air I&O- Last 24 Hours up to 6 AM 09/19/18 06:00 Intake Total 120 ml Output Total 0 ml Balance 120 ml Laboratory Data 24H LABS Laboratory Tests 2 09/18/18 23:06: Bedside Glucose (Misc Panel) 126H 09/19/18 05:51: Bedside Glucose (Misc Panel) 83 Microbiology Microbiology 09/18/18 Blood Culture, Received Pending 09/18/18 Blood Culture, Received Pending JASVIR HERNANDEZ PA-C Sep 19, 2018 11:28 am Elkin Cisse MD Sep 19, 2018 8:09 pm
[2018-09-19 13:59] LABS: BASO # 0.1 10^3/uL (0.0-0.2); BASO % 0.7 % (0.0-1.0); EOS # 0.1 10^3/uL (0.0-0.50); EOS % 1.9 % (0.0-3.0); HEMATOCRIT 36.7 % (42.0-52.0); HEMOGLOBIN 12.4 g/dl (13.5-17.5); LYMPH # 3.3 10^3/uL (1.5-4.5); LYMPH % 43.9 % (24.0-44.0); MEAN CORPUSCULAR HEMOGLOBIN 29.7 pg (27.0-33.0); MEAN CORPUSCULAR HGB CONC 33.8 g/dl (32.0-36.5); MONO # 0.7 10^3/uL (0.0-0.8); MONO % 9.4 % (0.0-5.0); NEUTROPHILS # 3.3 10^3/uL (1.8-7.7); PLATELET COUNT, AUTOMATED 197 10^3/uL (150-450); RED BLOOD COUNT 4.17 10^6/uL (4.30-6.10); WHITE BLOOD COUNT 7.5 10^3/uL (4.0-10.0)
[2018-09-19 14:24] LABS: ALBUMIN 3.4 GM/DL (3.2-5.2); ALT/SGPT 20 U/L (12-78); BILIRUBIN,TOTAL 0.6 MG/DL (0.2-1.0); BLOOD UREA NITROGEN 16 MG/DL (7-18); CALCIUM LEVEL 8.1 MG/DL (8.5-10.1); CARBON DIOXIDE LEVEL 27 MEQ/L (21-32); CHLORIDE LEVEL 108 MEQ/L (98-107); CREATININE FOR GFR 0.85 MG/DL (0.70-1.30); GLOMERULAR FILTRATION RATE > 60.0 (>56); GLUCOSE, FASTING 100 MG/DL (70-100); POTASSIUM SERUM 3.7 MEQ/L (3.5-5.1); SODIUM LEVEL 141 MEQ/L (136-145); TOTAL PROTEIN 6.1 GM/DL (6.4-8.2)
--- NOTE | 2018-09-19 15:16 | REP ---
HIDA SCAN: Following the intravenous administration of 6.3 millicuries of Technetium 99M Mebrofenin, multiple images of the right upper quadrant are performed up to 3 hours post injection. Biliary to bowel transit is seen at 10 minutes postinjection. I do not see gallbladder activity on any of the imaging performed up to 3 hours post injection. Findings are compatible with cholecystitis. IMPRESSION: Nonvisualization of the gallbladder up to 3 hours post injection. Findings are compatible with cholecystitis. Electronically Signed by Rahul William MD 09/19/2018 05:31 P
--- NOTE | 2018-09-19 21:33 | IPN ---
DATE: 09/19/2018 The patient overall states that since his episode of pain and discomfort in the right subcostal area yesterday he has not had any recurrence of this pain or discomfort. Has not taken any pain medications today and his white count has returned to normal. He did have a little bit of a low grade temperature of 99.3 last night, but otherwise has been back down to normal at 97.8. He otherwise has not had any nausea, no vomiting and no evidence of bilirubinuria. His chemistries remained normal for his liver function tests. PHYSICAL EXAMINATION: Abdomen: Soft, nontender, nondistended. No guarding no rebound. No peritoneal signs are appreciated. He did undergo a HIDA scan today that showed nonfilling of the gallbladder. IMPRESSION AND PLAN The patient had an episode of right upper quadrant pain and tenderness all consistent with acute cholecystitis. However, at this point his clinical exam shows that he has probable resolution of his cholecystitis. The HIDA scan is not confirmatory for this, however, and may be that he has some gallbladder distension causing prevention or maybe ongoing cystic duct obstruction. However, at this point will start him on some clear liquids today. If he has any recurrence of pain and discomfort this would imply that he needs more urgent intervention. I have offered him several options for intervention including operative intervention prior to discharge versus outpatient laparoscopic cholecystectomy. I will discuss this with him early tomorrow morning and see what he would like to proceed with. But at this point, will start him on a clear liquid diet and see if he tolerates this overnight and he does, then either proceeding to a low-fat diet and discharge to home on by mouth (p.o.) antibiotics and p.o. pain medications is reasonable or proceeding with laparoscopic cholecystectomy as an inpatient.
[2018-09-19 22:00] VITALS: BP 120/69
[2018-09-20] VITALS (7 sets, daily range): BP systolic 112–142; BP diastolic 69–78
[2018-09-20] MEDS: metroNIDAZOLE 500 MG in APPROPRIATE DILUENT 1 EA IV SCH ×2 (02:24→10:54)
[2018-09-20] MEDS: NS 1,000 ML IV SCH ×2 (02:25→20:47)
[2018-09-20] MEDS: PANTOPRAZOLE 40MG INJ (PROTONIX) (C9113) IV SCH (05:19)
[2018-09-20 06:57] LABS: BASO # 0.1 10^3/uL (0.0-0.2); BASO % 0.6 % (0.0-1.0); EOS # 0.1 10^3/uL (0.0-0.50); EOS % 1.7 % (0.0-3.0); HEMATOCRIT 35.7 % (42.0-52.0); HEMOGLOBIN 12.2 g/dl (13.5-17.5); LYMPH # 2.8 10^3/uL (1.5-4.5); LYMPH % 33.8 % (24.0-44.0); MEAN CORPUSCULAR HGB CONC 34.2 g/dl (32.0-36.5); MEAN CORPUSCULAR VOLUME 87.9 fl (80.0-96.0); MONO # 0.9 10^3/uL (0.0-0.8); MONO % 10.6 % (0.0-5.0); NEUTROPHILS # 4.3 10^3/uL (1.8-7.7); NEUTROPHILS % 53.1 % (36.0-66.0); PLATELET COUNT, AUTOMATED 196 10^3/uL (150-450); RED BLOOD COUNT 4.06 10^6/uL (4.30-6.10); WHITE BLOOD COUNT 8.1 10^3/uL (4.0-10.0)
[2018-09-20 07:21] LABS: ALBUMIN 3.1 GM/DL (3.2-5.2); ALT/SGPT 73 U/L (12-78); BILIRUBIN,TOTAL 0.9 MG/DL (0.2-1.0); BLOOD UREA NITROGEN 12 MG/DL (7-18); CALCIUM LEVEL 7.9 MG/DL (8.5-10.1); CARBON DIOXIDE LEVEL 25 MEQ/L (21-32); CHLORIDE LEVEL 108 MEQ/L (98-107); CREATININE FOR GFR 0.71 MG/DL (0.70-1.30); GLOMERULAR FILTRATION RATE > 60.0 (>56); GLUCOSE, FASTING 98 MG/DL (70-100); POTASSIUM SERUM 3.6 MEQ/L (3.5-5.1); SODIUM LEVEL 141 MEQ/L (136-145); TOTAL PROTEIN 5.7 GM/DL (6.4-8.2)
--- NOTE | 2018-09-20 07:26 | ECGEPIP ---
Stationary ECG Study [facility] Test Date: 2018-09-20 Pat Name: FIDEL MAXWELL Department: Room: [place] [address] Gender: M [employer] Supervisor: EZRA : [id number] Requested By: Elkin Gentile Order Number: [id number] Reading MD: Babs Saenz Measurements Intervals [place] Rate: 42 P: 48 TN: 116 QRS: 1 QRSD: 109 T: 17 QT: 473 QTc: 397 Interpretive Statements SINUS BRADYCARDIA WITH SHORT TN INTERVAL LOW QRS VOLTAGE IN PRECORDIAL LEADS NEW INCOMPLETE RIGHT BUNDLE BRANCH BLOCK QT SHORTER U WAVES AGAIN PRESENT Electronically Signed On 09-20-2018 7:26:07 EST by Babs Saenz
[2018-09-20] MEDS: CIPROFLOXACIN 400 MG in APPROPRIATE DILUENT 1 EA IV SCH ×2 (09:25→20:46)
[2018-09-20] MEDS ORDERED: LIDOCAINE 2% INJ 100 MG/5 ML SDV (FOR ANES.) As Ordered ONE (14:26)
[2018-09-20] MEDS ORDERED: ONDANSETRON 4MG/2ML VIAL (J2405) As Ordered ONE (14:26)
[2018-09-20] MEDS ORDERED: PROPOFOL 200 MG/20 ML VIAL As Ordered ONE ×2 (14:26→16:27)
[2018-09-20] MEDS ORDERED: ROCURONIUM BROMIDE 50 MG/5 ML VIAL As Ordered ONE (14:26)
[2018-09-20] MEDS ORDERED: NEOSTIGMINE 10 MG/10 ML VIAL (J2710) As Ordered ONE (14:26)
[2018-09-20] MEDS ORDERED: GLYCOPYRROLATE INJ 0.2 MG/ML 2 ML VIAL As Ordered ONE (14:26)
[2018-09-20] MEDS ORDERED: fentaNYL 100 MCG/2 ML INJECTION (J3010) As Ordered ONE ×3 (14:27→17:02)
[2018-09-20] MEDS ORDERED: MIDAZOLAM INJ 2 MG/2 ML VIAL (J2250) As Ordered ONE (14:27)
[2018-09-20] MEDS ORDERED: dexameTHASONE 4 MG/ML 1ML VIAL (J1100) As Ordered ONE (14:27)
[2018-09-20] MEDS ORDERED: BUPIVACAINE/EPIN 0.25% 30 ML VIAL As Ordered ONE (15:11)
[2018-09-20] MEDS ORDERED: ePHEDrine SULFATE 25 MG/5 ML(5MG/ML) SYRINGE As Ordered ONE (15:32)
[2018-09-20] MEDS ORDERED: PERCOCET 5MG/325MG TAB PO PRN ×3 (16:45→17:00)
[2018-09-20] MEDS ORDERED: MEPERIDINE INJ 25 MG/ML VIAL (J2175) IV PRN (17:00)
[2018-09-20] MEDS ORDERED: ONDANSETRON 4MG/2ML VIAL (J2405) IV PRN (17:00)
[2018-09-20] MEDS ORDERED: METOCLOPRAMIDE INJ 10MG/2ML VIAL (J2765) IV PRN (17:00)
[2018-09-20] MEDS ORDERED: LR 1,000 ML IV SCH (17:00)
[2018-09-20] MEDS ORDERED: PERCOCET 5MG/325MG TAB As Ordered ONE (17:02)
[2018-09-20] MEDS: fentaNYL 100 MCG/2 ML INJECTION (J3010) IV PRN ×7 (17:03→21:49)
--- NOTE | 2018-09-20 18:04 | IPNPDOC ---
Subjective Date Seen The patient was seen on 09/20/18. Subjective Chief Complaint/HPI Patient tried some soup, had some abdominal pain that resolved. No pain currently. Currently not drinking any clears. ENT: Denies: Head Aches Pulmonary: Denies: Dyspnea, Cough Cardiovascular: Denies: Chest Pain Gastrointestinal: Reports: Abdominal Pain Objective Physical Examination General Exam: Positive: Alert, Cooperative, No Acute Distress ENT Exam: Positive: Mucous membr. moist/pink Chest Exam: Positive: Clear to auscultation, Normal air movement Heart Exam: Positive: Rate Normal, Normal S1, Normal S2 Abdomen Exam: Positive: Normal bowel sounds, Soft, Tenderness (mild on deep palpation in the right upper quadrant) Male Exam: Positive: Edema Extremity Exam: Positive: Edema Assessment /Plan Problems (1) Cholecystitis Status: Acute Response to Treatment: Stable, Improving Problem Text: 09/20 Patient scheduled for surgery. Continue IV abx. Appreciate Surgery assistance in management of this patient. 09/19 IV Flagyl, Cipro D2, afebrile, mild leukocystosis, repeat BW today. Cont NPO until surgical status determined (2) Diabetes Problem Text: Patient not on any medications. Currently diet controlled. Last A1C was 5.6 09/15/2018 Plan/VTE VTE Prophylaxis Ordered?: Yes (TEDS, SCDs) VS, I&O, 24H, Fishbone Vital Signs/I&O Vital Signs Date Time Temp Pulse Resp B/P (MAP) Pulse Ox O2 Delivery O2 Flow Rate FiO2 09/20/18 17:22 20 09/20/18 17:20 56 119/63 (81) 97 Nasal Cannula 2 09/20/18 17:15 97.1 I&O- Last 24 Hours up to 6 AM 09/20/18 06:00 Intake Total 1920 ml Output Total 0 ml Balance 1920 ml Laboratory Data 24H LABS Laboratory Tests 2 09/20/18 06:03: Bedside Glucose (Misc Panel) 91 09/20/18 06:43: Immature Granulocyte % (Auto) 0.2, White Blood Count 8.1, Red Blood Count 4.06L, Hemoglobin 12.2L, Hematocrit 35.7L, Mean Corpuscular Volume 87.9, Mean Cor puscular Hemoglobin 30.0, Mean Corpuscular Hemoglobin Concent 34.2, Red Cell Distribution Width 12.5, Platelet Count 196, Neutrophils (%) (Auto) 53.1, Lymphocytes (%) (Auto) 33.8, Monocytes (%) (Auto) 10.6H, Eosinophils (%) (Auto) 1.7, Basophils (%) (Auto) 0.6, Neutrophils # (Auto) 4.3, Lymphocytes # (Auto) 2.8, Monocytes # (Auto) 0.9H, Eosinophils # (Auto) 0.1, Basophils # (Auto) 0.1, Nucleated Red Blood Cells % (auto) 0.0, Anion Gap 8, Glomerular Filtration Rate > 60.0, Blood Urea Nitrogen 12, Creatinine 0.71, Sodium Level 141, Potassium Level 3.6, Chloride Level 108H, Carbon Dioxide Level 25, Calcium Level 7.9L, Aspartate Amino Transf (AST/SGOT) 104H, Alanine Aminotransferase (ALT/SGPT) 73, Alkaline Phosphatase 81, Total Bilirubin 0.9, Total Protein 5.7L, Albumin 3.1L, Albumin/Globulin Ratio 1.19 09/20/18 12:06: Bedside Glucose (Misc Panel) 99 CBC/BMP Laboratory Tests 09/20/18 06:43 Red Blood Count 4.06 L, Mean Corpuscular Volume 87.9, Mean Corpuscular Hemoglobin 30.0, Mean Corpuscular Hemoglobin Concent 34.2, Red Cell Distribution Width 12.5, Neutrophils (%) (Auto) 53.1, Lymphocytes (%) (Auto) 33.8, Monocytes (%) (Auto) 10.6 H, Eosinophils (%) (Auto) 1.7, Basophils (%) (Auto) 0.6, Neutrophils # (Auto) 4.3, Lymphocytes # (Auto) 2.8, Monocytes # (Auto) 0.9 H, Eosinophils # (Auto) 0.1, Basophils # (Auto) 0.1, Calcium Level 7.9 L, Aspartate Amino Transf (AST/SGOT) 104 H, Alanine Aminotransferase (ALT/SGPT) 73, Alkaline Phosphatase 81, Total Bilirubin 0.9, Total Protein 5.7 L, Albumin 3.1 L Microbiology Microbiology 09/18/18 Blood Culture - Preliminary, Resulted No Growth after 48 hours. All Specime... 09/18/18 Blood Culture - Preliminary, Resulted No Growth after 48 hours. All Specime... GME ATTESTATION ATTENDING NOTE Family Medicine Attending Note: I was present on site to supervise Daniel Narvaez D.O. (OGME-3). We discussed the history and exam. I confirmed the chaparro elements during my [id number] encounter with the patient. We conferred on the assessment and plan; I agree with the note as documented. Initially we thought this patient was going to the OR tomorrow, however, he had his surgery today. I was able to see him in the postoperative period and he reports he is feeling fine. He is very anxious to go home and is currently pushing to go home tomorrow. I will need to discuss this with the surgeon before making a def initive decision. (motel front desk attendant) DANIEL NARVAEZ DO Sep 20, 2018 6:04 pm Elkin Cisse MD Sep 20, 2018 8:20 pm
[2018-09-21] MEDS: KETOROLAC 30 MG/ML VIAL (J1885) IV PRN (00:12)
[2018-09-21] MEDS: metroNIDAZOLE 500 MG in APPROPRIATE DILUENT 1 EA IV SCH ×2 (01:06→01:07)
[2018-09-21 02:00] VITALS: BP 109/62
[2018-09-21] MEDS: PANTOPRAZOLE 40MG INJ (PROTONIX) (C9113) IV SCH (05:25)
[2018-09-21 06:00] VITALS: BP 140/80
[2018-09-21 06:54] LABS: BASO % 0.2 % (0.0-1.0); EOS % 0.1 % (0.0-3.0); HEMATOCRIT 38.1 % (42.0-52.0); HEMOGLOBIN 12.8 g/dl (13.5-17.5); LYMPH # 1.7 10^3/uL (1.5-4.5); LYMPH % 16.4 % (24.0-44.0); MEAN CORPUSCULAR HEMOGLOBIN 29.6 pg (27.0-33.0); MEAN CORPUSCULAR HGB CONC 33.6 g/dl (32.0-36.5); MONO % 9.4 % (0.0-5.0); NEUTROPHILS # 7.6 10^3/uL (1.8-7.7); NEUTROPHILS % 73.5 % (36.0-66.0); PLATELET COUNT, AUTOMATED 226 10^3/uL (150-450); RED BLOOD COUNT 4.33 10^6/uL (4.30-6.10); WHITE BLOOD COUNT 10.3 10^3/uL (4.0-10.0)
[2018-09-21 07:22] LABS: BLOOD UREA NITROGEN 10 MG/DL (7-18); CALCIUM LEVEL 8.3 MG/DL (8.5-10.1); CARBON DIOXIDE LEVEL 25 MEQ/L (21-32); CHLORIDE LEVEL 107 MEQ/L (98-107); CREATININE FOR GFR 0.71 MG/DL (0.70-1.30); GLOMERULAR FILTRATION RATE > 60.0 (>56); GLUCOSE, FASTING 99 MG/DL (70-100); SODIUM LEVEL 138 MEQ/L (136-145)
[2018-09-21] MEDS ORDERED: PERCOCET PO (08:14)
[2018-09-21] MEDS ORDERED: CIPR-249 PO (08:14)
[2018-09-21 09:26] VITALS: BP 118/74
--- NOTE | 2018-09-21 10:41 | RO ---
DATE OF PROCEDURE: 09/20/2018 PREOPERATIVE DIAGNOSIS: Acute cholecystitis. POSTOPERATIVE DIAGNOSIS: Acute cholecystitis. PROCEDURE: Laparoscopic cholecystectomy. SURGEON: Liang Lau MD ANESTHESIA: General endotracheal anesthesia. ESTIMATED BLOOD LOSS: Minimal. FLUIDS: Crystalloid. BRIEF PROCEDURE SUMMARY: The patient was brought to the operating room and was given general anesthesia. After adequate anesthesia and preoperative antibiotics were given, the patient was prepped and draped in sterile fashion. Next, a supraumbilical incision was made with skin knife. Blunt dissection was carried down to fascia and Veress needle placed into the abdominal cavity, insufflated to 15 mm of pressure. A dilating 5 mm trocar was placed at this time and then a 10 mm trocar was placed over that area. Next, an epigastric and two lateral trocars were placed. There were some adhesions on the right side of the abdomen, which were taken down. There were also some adhesions to the gallbladder, which were taken down. The gallbladder was grasped, retracted superiorly and then the neck of the gallbladder was cleared of peritoneum, which was quite thickened, edematous and quite friable. Eventually, the lateral portion was cleared all the way across the anterior portion and then medially where the cystic artery could be appreciated. A dissector was placed through the space between the artery and the neck of the gallbladder and a good window was appreciated. Further dissection was enabled at that this time, going from lateral to medial and back and forth. Once I was able to see a critical view of safety, the cystic artery was clipped proximally and distally and transected. There was a branch that was following the bed of the gallbladder, which was about 2-3 mm in size, which was clipped as well. The neck of the gallbladder was cleared of peritoneum all the way down to the cystic duct, and then I could feel some stone material within the neck of the gallbladder and thus the cystic duct was milked back. Stones were seen to go back into the neck of the gallbladder. Once this was cleared of stones / debris, the clips were placed on the cystic duct and the gallbladder was removed, after transecting the cystic duct of the gallbladder neck junction. Placed in an EndoCatch bag brought out through the umbilicus. 0 Vicryl was used to close the fascia at the umbilicus after the right upper quadrant was copiously irrigated until clear. The operative field was cleaned and dried. The patient was brought to the recovery room awake, alert, hemodynamically stable. Sponge and needle counts correct times two.
== END 2018-09-21 11:25 | disposition home or self-care (01) | DRG 263 ==
LOC: M ED 19:39 → M ED INP 09-18 03:28 → M MS5PR 09-18 04:21
PROVIDERS: ADMIT Hospitalist; ATTEND Family Medicine
PROC: 0FT44ZZ Resection of Gallbladder, Percutaneous Endoscopic Approach (ICD-10-PCS; principal; 2018-09-20 16:30)
DX: K80.00 Calculus of gallbladder with acute cholecystitis without obstruction (principal); K75.81 Nonalcoholic steatohepatitis (NASH); K22.70 Barrett's esophagus without dysplasia; K29.00 Acute gastritis without bleeding; E11.9 Type 2 diabetes mellitus without complications; E78.5 Hyperlipidemia, unspecified; G47.30 Sleep apnea, unspecified; Z98.84 Bariatric surgery status; Z87.891 Personal history of nicotine dependence; Z79.899 Other long term (current) drug therapy

== ENCOUNTER → 2020-02-01 | Outpatient (REF) | payer BC ==
[~2020-02-01] MED LIST changes: +CIPR-249 PO; +OMEP1CAP73 PO; -OMEP20CA3 PO; -OMEP40CA2 PO; +OMEP40CA97 PO; +PERCOCET PO; +VITMTA PO
[2020-02-01 12:10] LABS: BASO # 0.1 10^3/uL (0.0-0.2); BASO % 0.7 % (0.0-1.0); EOS # 0.2 10^3/uL (0.0-0.5); EOS % 2.4 % (0.0-3.0); HEMOGLOBIN 14.1 g/dl (13.5-17.5); LYMPH # 2.7 10^3/uL (1.5-5.0); LYMPH % 35.4 % (24.0-44.0); MEAN CORPUSCULAR HEMOGLOBIN 29.3 pg (27.0-33.0); MEAN CORPUSCULAR HGB CONC 32.8 g/dl (32.0-36.5); MEAN CORPUSCULAR VOLUME 89.2 fl (80.0-96.0); MONO # 0.8 10^3/uL (0.0-0.8); MONO % 10.2 % (0.0-5.0); NEUTROPHILS # 3.9 10^3/uL (1.5-8.5); PLATELET COUNT, AUTOMATED 263 10^3/uL (150-450); RED BLOOD COUNT 4.82 10^6/uL (4.30-6.10); WHITE BLOOD COUNT 7.7 10^3/uL (4.0-10.0)
[2020-02-01 12:26] LABS: ALBUMIN 3.8 GM/DL (3.2-5.2); ALT/SGPT 21 U/L (12-78); BILIRUBIN,TOTAL 0.6 MG/DL (0.2-1.0); BLOOD UREA NITROGEN 16 MG/DL (7-18); CARBON DIOXIDE LEVEL 28 MEQ/L (21-32); CHLORIDE LEVEL 107 MEQ/L (98-107); CHOLESTEROL LEVEL 161 MG/DL (<200); CHOLESTEROL RISK RATIO 3.425 (<5); CREATININE FOR GFR 0.94 MG/DL (0.70-1.30); FERRITIN 26 NG/ML (26-388); GLOMERULAR FILTRATION RATE > 60.0 (>56); GLUCOSE, FASTING 116 MG/DL (70-100); HDL CHOLESTEROL 47 MG/DL (>40); IRON (FE) 97 UG/DL (65-175); LDL CHOLESTEROL 102 MG/DL (<100); NON-HDL-C 114 MG/DL; POTASSIUM SERUM 4.5 MEQ/L (3.5-5.1); SODIUM LEVEL 139 MEQ/L (136-145); TRIGLYCERIDES LEVEL 62 MG/DL (<150)
[2020-02-01 12:29] LABS: TOTAL 25(OH) VITAMIN D 29.5 NG/ML (30.0-100.0); VITAMIN B12 LEVEL 551 PG/ML (247-911)
[2020-02-01 13:17] LABS: MALB URINE SIEMENS 15.2 MG/L; MAU/CREAT RATIO 8.6 MCG/MG (0.0-30.0)
[2020-02-01 15:01] LABS: HEMOGLOBIN A1c 5.6 %
== END ==
LOC: M SFHCCLAY 07:06
PROVIDERS: ATTEND Nurse Practitioner Family
DX: Z98.84 Bariatric surgery status (principal); E78.2 Mixed hyperlipidemia; E11.9 Type 2 diabetes mellitus without complications

== ENCOUNTER → 2020-05-05 | Outpatient (CLI) | payer BC ==
[~2020-05-05] MED LIST changes: +E-Z-GAS II EFFERVESCENT PACKET (SODIUM BICARB./CITRIC ACID/SIMETHICONE) As Ordered ONE; +E-Z-HD 98% w/w 340GM SUSP BTL As Ordered ONE; +E-Z-PAQUE 96% w/w SUSP 176GM BTL As Ordered ONE
--- NOTE | 2020-05-09 09:07 | REP ---
ESOPHAGRAM DATE: 05/05/2020 This procedure was performed by Gisselle Rodriguez [facility], under the direct supervision of Dr. William. Images were reviewed with Dr. William prior to dictation. A single view PA chest x-ray is submitted as a speech therapist technician film. The superior mediastinal structures are midline. The heart size is within normal limits. The lungs appear clear. Liquid barium and gas-producing granules were given in the erect position, as well as liquid barium in the prone oblique position in order to perform a double-contrast esophagram examination. The oral and pharyngeal stages of deglutition were unremarkable. Esophageal transport is prompt and efficient and there is no esophagitis, stricture, or mucosal ring. There is a small hiatal hernia. No gastroesophageal reflux was visualized during this exam. IMPRESSION: 1. Small hiatal hernia. 0.3 minutes of fluoroscopy time was utilized for this procedure. ROLAND
== END ==
LOC: M RAD 07:18
PROVIDERS: ATTEND Physician Assistant
DX: K22.70 Barrett's esophagus without dysplasia (principal); R11.10 Vomiting, unspecified; K21.9 Gastro-esophageal reflux disease without esophagitis; R19.5 Other fecal abnormalities; Z12.11 Encounter for screening for malignant neoplasm of colon; K44.9 Diaphragmatic hernia without obstruction or gangrene

== ENCOUNTER → 2021-02-20 | Outpatient (REF) | payer BC ==
[~2021-02-20] MED LIST changes: -E-Z-GAS II EFFERVESCENT PACKET (SODIUM BICARB./CITRIC ACID/SIMETHICONE) As Ordered ONE; -E-Z-HD 98% w/w 340GM SUSP BTL As Ordered ONE; -E-Z-PAQUE 96% w/w SUSP 176GM BTL As Ordered ONE; +OMEP40CA4 PO; -OMEP40CA97 PO
[2021-02-20 12:49] LABS: BASO # 0.1 10^3/uL (0.0-0.2); BASO % 0.9 % (0.0-1.0); EOS # 0.2 10^3/uL (0.0-0.5); EOS % 2.3 % (0.0-3.0); HEMATOCRIT 43.3 % (42.0-52.0); HEMOGLOBIN 14.2 g/dl (13.5-17.5); LYMPH % 36.6 % (24.0-44.0); MEAN CORPUSCULAR HEMOGLOBIN 29.2 pg (27.0-33.0); MEAN CORPUSCULAR HGB CONC 32.8 g/dl (32.0-36.5); MEAN CORPUSCULAR VOLUME 88.9 fl (80.0-96.0); MONO # 0.8 10^3/uL (0.0-0.8); NEUTROPHILS # 4.1 10^3/uL (1.5-8.5); NEUTROPHILS % 49.8 % (36.0-66.0); PLATELET COUNT, AUTOMATED 243 10^3/uL (150-450); RED BLOOD COUNT 4.87 10^6/uL (4.30-6.10); WHITE BLOOD COUNT 8.2 10^3/uL (4.0-10.0)
[2021-02-20 13:22] LABS: ALBUMIN 3.8 GM/DL (3.2-5.2); ALT/SGPT 24 U/L (12-78); BILIRUBIN,TOTAL 0.6 MG/DL (0.2-1.0); BLOOD UREA NITROGEN 14 MG/DL (7-18); CALCIUM LEVEL 9.2 MG/DL (8.5-10.1); CARBON DIOXIDE LEVEL 28 MEQ/L (21-32); CHLORIDE LEVEL 106 MEQ/L (98-107); CHOLESTEROL LEVEL 170 MG/DL (<200); CHOLESTEROL RISK RATIO 3.269 (<5); CREATININE FOR GFR 0.77 MG/DL (0.70-1.30); FERRITIN 26 NG/ML (26-388); GLOMERULAR FILTRATION RATE > 60.0 (>56); GLUCOSE, FASTING 105 MG/DL (70-100); HDL CHOLESTEROL 52 MG/DL (>40); IRON (FE) 92 UG/DL (65-175); LDL CHOLESTEROL 105 MG/DL (<100); NON-HDL-C 118 MG/DL; POTASSIUM SERUM 4.3 MEQ/L (3.5-5.1); SODIUM LEVEL 140 MEQ/L (136-145); TOTAL PROTEIN 6.8 GM/DL (6.4-8.2); TRIGLYCERIDES LEVEL 65 MG/DL (<150)
[2021-02-20 13:24] LABS: HEMOGLOBIN A1c 5.3 %
[2021-02-20 13:30] LABS: MAU/CREAT RATIO 4.2 MCG/MG (0.0-30.0)
== END ==
LOC: M SFHCCLAY 07:08
PROVIDERS: ATTEND Nurse Practitioner Family
DX: Z98.84 Bariatric surgery status (principal); E78.2 Mixed hyperlipidemia; E11.9 Type 2 diabetes mellitus without complications; N40.0 Benign prostatic hyperplasia without lower urinary tract symptoms

== ENCOUNTER → 2021-04-30 | Outpatient (CLI) | payer BC ==
[~2021-04-30] MED LIST changes: +D31000TA2 PO
== END ==
LOC: M LABSMTC 09:51
PROVIDERS: ATTEND Anesthesiology
DX: Z01.818 Encounter for other preprocedural examination (principal); Z11.52 Encounter for screening for COVID-19

== ENCOUNTER 2021-05-05 06:57 | Day surgery (SDC) | payer BC ==
[~2021-05-05] VITALS: Ht 167.6 cm; Wt 101.6 kg
[2021-05-05] MEDS ORDERED: NS 1,000 ML IV ONE (07:25)
[2021-05-05] MEDS ORDERED: propofoL 200 MG/20 ML VIAL As Ordered ONE (08:04)
[2021-05-05] MEDS ORDERED: LIDOCAINE 2% 100MG/5ML SDV (FOR ANES.) As Ordered ONE (08:04)
[2021-05-05] MEDS ORDERED: fentaNYL 100 MCG/2 ML INJECTION (J3010) As Ordered ONE (08:04)
--- NOTE | 2021-05-05 08:27 | ROOR ---
Patient Name: Matt Chino Procedure Date: 05/05/2021 8:06 AM Date of : 1960 Age: 60 Room: [facility] Gender: Male Note Status: Finalized Procedure: Upper GI endoscopy Indications: Surveillance for malignancy due to personal history of Goodrich's esophagus Providers: Dheeraj Diaz MD Referring MD: Wanda Shoemaker NP Requesting Provider: Medicines: Monitored Anesthesia Care Complications: No immediate complications. Procedure: Pre-Anesthesia Assessment: - The heart rate, respiratory rate, oxygen saturations, blood pressure, adequacy of pulmonary ventilation, and response to care were monitored throughout the procedure. The Endoscope was introduced through the mouth, and advanced to the jejunum. The upper GI endoscopy was accomplished without difficulty. The patient tolerated the procedure well. Findings: The esophagus and gastroesophageal junction were examined with white light and narrow band imaging (NBI) from a forward view and retroflexed position. There were esophageal mucosal changes suspicious for short-segment Goodrich's esophagus. These changes involved the mucosa at the upper extent of the gastric folds (37 cm from the incisors) extending to the Z-line (34 cm from the incisors). Circumferential salmon-colored mucosa was present, tongues of salmon-colored mucosa were present and no visible abnormalities were present. The maximum longitudinal extent of these esophageal mucosal changes was 3 cm in length. Mucosa was biopsied with a cold forceps for histology at intervals of 1 cm. A total of 4 specimen bottles were sent to pathology. Evidence of a gastric bypass was found. A gastric pouch with a normal size was found. The staple line appeared intact. The gastrojejunal anastomosis was characterized by healthy appearing mucosa. This was traversed. The examined jejunum was normal. Impression: - Esophageal mucosal changes suspicious for short-segment (3 cm, smooth) Goodrich's esophagus. Biopsied. - RNY/Gastric bypass with a normal-sized pouch and intact staple line. Gastrojejunal anastomosis characterized by healthy appearing mucosa. - Normal examined jejunum. Recommendation: - Use Prilosec (omeprazole) 40 mg PO daily indefinitely. - Repeat upper endoscopy for surveillance based on pathology results. (typically 3 years if biopsies free of significant dysplasia). - Telephone endoscopist for pathology results in 2 weeks. Procedure Code(s): --- Professional --- 08070, Esophagogastroduodenoscopy, flexible, transoral; with biopsy, single or multiple Diagnosis Code(s): --- Professional --- Z98.84, Bariatric surgery status K22.70, Goodrich's esophagus without dysplasia CPT copyright 2019 [employer]. All rights reserved. The codes documented in this report are preliminary and upon braid pattern setter review may be revised to meet current compliance requirements. Dheeraj Diaz MD Dheeraj Diaz MD 05/05/2021 8:27:05 AM Electronically signed by Dheeraj Diaz MD Number of Addenda: 0 Note Initiated On: 05/05/2021 8:06 AM Estimated Blood Loss: Estimated blood loss: none.
[2021-05-05 08:47] VITALS: BP 119/67
== END 2021-05-05 08:49 | disposition home or self-care (01) ==
LOC: M OPP 06:57
PROVIDERS: ATTEND Internal Medicine Gastroenterology
DX: K22.70 Barrett's esophagus without dysplasia (principal); Z98.84 Bariatric surgery status; Z79.899 Other long term (current) drug therapy
CPT/HCPCS: 43239; 88305; J3010

== ENCOUNTER → 2022-02-23 | Outpatient (REF) | payer BC ==
[~2022-02-23] MED LIST changes: -D31000TA2 PO; +VITA100093 PO
[2022-02-23 11:47] LABS: BASO # 0.1 10^3/uL (0.0-0.2); EOS # 0.4 10^3/uL (0.0-0.5); EOS % 5.3 % (0.0-3.0); HEMATOCRIT 40.9 % (42.0-52.0); HEMOGLOBIN 13.9 g/dl (13.5-17.5); LYMPH # 2.5 10^3/uL (1.5-5.0); LYMPH % 36.4 % (24.0-44.0); MEAN CORPUSCULAR HEMOGLOBIN 29.9 pg (27.0-33.0); MONO # 0.8 10^3/uL (0.0-0.8); MONO % 11.7 % (2.0-8.0); NEUTROPHILS # 3.2 10^3/uL (1.5-8.5); NEUTROPHILS % 45.5 % (36.0-66.0); PLATELET COUNT, AUTOMATED 247 10^3/uL (150-450); RED BLOOD COUNT 4.65 10^6/uL (4.30-6.10)
[2022-02-23 12:00] LABS: ALBUMIN 3.6 GM/DL (3.2-5.2); ALT/SGPT 19 U/L (12-78); BILIRUBIN,TOTAL 0.7 MG/DL (0.2-1.0); BLOOD UREA NITROGEN 21 MG/DL (7-18); CALCIUM LEVEL 8.8 MG/DL (8.8-10.2); CARBON DIOXIDE LEVEL 31 MEQ/L (21-32); CHLORIDE LEVEL 108 MEQ/L (98-107); CHOLESTEROL LEVEL 149 MG/DL (<200); CHOLESTEROL RISK RATIO 2.442 (<5); GLOMERULAR FILTRATION RATE > 60.0 (>49); GLUCOSE, FASTING 116 MG/DL (70-100); HDL CHOLESTEROL 61 MG/DL (>40); IRON (FE) 167 UG/DL (65-175); LDL CHOLESTEROL 73 MG/DL (<100); NON-HDL-C 88 MG/DL; POTASSIUM SERUM 4.1 MEQ/L (3.5-5.1); SODIUM LEVEL 141 MEQ/L (136-145); TOTAL PROTEIN 6.6 GM/DL (6.4-8.2); TRIGLYCERIDES LEVEL 74 MG/DL (<150)
[2022-02-23 12:08] LABS: MALB URINE SIEMENS 12.9 MG/L; MAU/CREAT RATIO 4.3 MCG/MG (0.0-30.0)
[2022-02-23 12:11] LABS: HEMOGLOBIN A1c 5.3 %
[2022-02-23 12:46] LABS: TOTAL 25(OH) VITAMIN D 55.1 NG/ML (30.0-100.0); VITAMIN B12 LEVEL 448 PG/ML (247-911)
== END ==
LOC: M SFHCCLAY 07:11
PROVIDERS: ATTEND Nurse Practitioner Family
DX: E11.9 Type 2 diabetes mellitus without complications (principal); Z98.84 Bariatric surgery status; E78.2 Mixed hyperlipidemia

== ENCOUNTER → 2023-03-01 | Outpatient (REF) | payer BC ==
[2023-03-01 11:21] LABS: BASO # 0.1 10^3/uL (0.0-0.2); BASO % 1.1 % (0.0-1.0); EOS # 0.2 10^3/uL (0.0-0.5); HEMATOCRIT 42.4 % (42.0-52.0); LYMPH # 2.4 10^3/uL (1.5-5.0); LYMPH % 38.5 % (24.0-44.0); MEAN CORPUSCULAR HEMOGLOBIN 29.7 pg (27.0-33.0); MEAN CORPUSCULAR VOLUME 89.8 fl (80.0-96.0); MONO # 0.6 10^3/uL (0.0-0.8); NEUTROPHILS % 47.1 % (36.0-66.0); PLATELET COUNT, AUTOMATED 229 10^3/uL (150-450); RED BLOOD COUNT 4.72 10^6/uL (4.30-6.10); WHITE BLOOD COUNT 6.3 10^3/uL (4.0-10.0)
[2023-03-01 11:40] LABS: CREATININE, URINE 168.4 MG/DL; MALB URINE SIEMENS < 3.0 MG/L; MAU/CREAT RATIO 1.7 MCG/MG (0.0-30.0)
[2023-03-01 11:43] LABS: ALBUMIN 3.8 G/DL (3.2-5.2); ALKALINE PHOSPHATASE 68 U/L (46-116); ALT/SGPT 18 U/L (7.0-40); AST/SGOT 11 U/L (<34); BILIRUBIN,TOTAL 0.9 MG/DL (0.3-1.2); BLOOD UREA NITROGEN 20 MG/DL (9-23); CARBON DIOXIDE LEVEL 28 MMOL/L (20-31); CHLORIDE LEVEL 107 MMOL/L (98-107); CHOLESTEROL LEVEL 154 MG/DL (<200); CHOLESTEROL RISK RATIO 2.96 (<5); CREATININE FOR GFR 0.86 MG/DL (0.70-1.30); GLOMERULAR FILTRATION RATE > 60.0 (>49); GLUCOSE, FASTING 116 MG/DL (74-106); LDL CHOLESTEROL 86.2 MG/DL (<100); MAGNESIUM LEVEL 1.7 MG/DL (1.8-2.4); POTASSIUM SERUM 4.5 MMOL/L (3.5-5.1); SODIUM LEVEL 139 MMOL/L (136-145); TOTAL PROTEIN 6.7 G/DL (5.7-8.2); TRIGLYCERIDES LEVEL 79 MG/DL (<150)
[2023-03-01 11:44] LABS: IRON (FE) 125 UG/DL (65-175); VITAMIN B12 LEVEL 353 PG/ML (211-911)
[2023-03-01 11:45] LABS: TOTAL 25(OH) VITAMIN D 59.9 NG/ML (20.0-100.0)
[2023-03-01 11:46] LABS: HEMOGLOBIN A1c 5.2 % (4.0-6.0)
== END ==
LOC: M SFHCCLAY 07:13
PROVIDERS: ATTEND Nurse Practitioner Family
DX: Z98.84 Bariatric surgery status (principal); E78.2 Mixed hyperlipidemia; E11.9 Type 2 diabetes mellitus without complications; N40.0 Benign prostatic hyperplasia without lower urinary tract symptoms
CPT/HCPCS: 80053; 80061; 82043; 82306; 82607; 83036; 83540; 83735; 85025; G0103

== ENCOUNTER 2023-11-03 12:11 | Emergency (ER) | payer BC ==
[~2023-11-03] VITALS: Ht 167.6 cm; Wt 108.2 kg
[2023-11-03] MEDS: KETOROLAC 30 MG/ML 1ML VIAL IV ONE (14:14)
[2023-11-03 14:23] LABS: BASO # 0.1 10^3/uL (0.0-0.2); BASO % 0.7 % (0.0-1.0); EOS # 0.1 10^3/uL (0.0-0.5); EOS % 1.5 % (0.0-3.0); HEMOGLOBIN 13.5 g/dl (13.5-17.5); LYMPH # 2.9 10^3/uL (1.5-5.0); LYMPH % 40.7 % (24.0-44.0); MEAN CORPUSCULAR HEMOGLOBIN 29.3 pg (27.0-33.0); MEAN CORPUSCULAR HGB CONC 33.8 g/dl (32.0-36.5); MEAN CORPUSCULAR VOLUME 86.8 fl (80.0-96.0); MONO # 0.6 10^3/uL (0.0-0.8); MONO % 8.6 % (2.0-8.0); NEUTROPHILS # 3.5 10^3/uL (1.5-8.5); NEUTROPHILS % 48.4 % (36.0-66.0); PLATELET COUNT, AUTOMATED 250 10^3/uL (150-450); RED BLOOD COUNT 4.61 10^6/uL (4.30-6.10); WHITE BLOOD COUNT 7.2 10^3/uL (4.0-10.0)
[2023-11-03 14:29] LABS: ERYTHROCYTE SEDIMENTATION RATE 5 mm/hr (0-20)
[2023-11-03 14:47] LABS: BLOOD UREA NITROGEN 18 MG/DL (9-23); CALCIUM LEVEL 9.2 MG/DL (8.3-10.6); CARBON DIOXIDE LEVEL 30 MMOL/L (20-31); CHLORIDE LEVEL 105 MMOL/L (98-107); CREATININE FOR GFR 0.73 MG/DL (0.70-1.30); GLOMERULAR FILTRATION RATE > 60.0 (>49); GLUCOSE, FASTING 115 MG/DL (74-106); POTASSIUM SERUM 4.3 MMOL/L (3.5-5.1); SODIUM LEVEL 138 MMOL/L (136-145)
[2023-11-03] MEDS ORDERED: KETO10TAB PO (16:19)
[2023-11-03 16:30] VITALS: BP 145/81; TEMP 97.9; O2SAT 99
== END 2023-11-03 16:25 | disposition home or self-care (01) ==
LOC: M ED 13:48
DX: R51.9 Headache, unspecified (principal); K21.9 Gastro-esophageal reflux disease without esophagitis; Z79.899 Other long term (current) drug therapy
CPT/HCPCS: 70450; 80048; 85025; 85652; 96374; 99284; J1885

== ENCOUNTER 2023-12-15 08:23 | Day surgery (SDC) | payer BC ==
[~2023-12-15] VITALS: Ht 167.6 cm; Wt 104.3 kg
[~2023-12-15 08:23] MED LIST changes: +KETO10TAB PO
[2023-12-15] MEDS: NS 1,000 ML IV ONE (08:45)
[2023-12-15] MEDS ORDERED: propofoL 500 MG/50 ML VIAL As Ordered ONE (09:50)
[2023-12-15 09:53] VITALS: TEMP 97.4
[2023-12-15 10:08] VITALS: BP 103/58; O2SAT 100
== END 2023-12-15 10:15 | disposition home or self-care (01) ==
LOC: M OPP 08:23
PROVIDERS: ATTEND Surgery
DX: Z12.11 Encounter for screening for malignant neoplasm of colon (principal); Z12.12 Encounter for screening for malignant neoplasm of rectum; D12.2 Benign neoplasm of ascending colon; K22.70 Barrett's esophagus without dysplasia; K44.9 Diaphragmatic hernia without obstruction or gangrene; Z98.84 Bariatric surgery status; E11.9 Type 2 diabetes mellitus without complications; N40.0 Benign prostatic hyperplasia without lower urinary tract symptoms; Z79.899 Other long term (current) drug therapy; Z87.891 Personal history of nicotine dependence

== ENCOUNTER → 2024-03-01 | Outpatient (REF) | payer BC ==
[2024-03-01 19:29] LABS: BASO # 0.1 10^3/uL (0.0-0.2); BASO % 0.8 % (0.0-1.0); EOS # 0.2 10^3/uL (0.0-0.5); EOS % 2.8 % (0.0-3.0); HEMATOCRIT 41.2 % (42.0-52.0); HEMOGLOBIN 14.1 g/dl (13.5-17.5); LYMPH # 3.1 10^3/uL (1.5-5.0); MEAN CORPUSCULAR HEMOGLOBIN 30.5 pg (27.0-33.0); MEAN CORPUSCULAR HGB CONC 34.2 g/dl (32.0-36.5); MONO # 0.7 10^3/uL (0.0-0.8); NEUTROPHILS # 3.4 10^3/uL (1.5-8.5); NEUTROPHILS % 45.1 % (36.0-66.0); PLATELET COUNT, AUTOMATED 252 10^3/uL (150-450); RED BLOOD COUNT 4.63 10^6/uL (4.30-6.10); WHITE BLOOD COUNT 7.4 10^3/uL (4.0-10.0)
[2024-03-01 20:03] LABS: PSA SCREENING 0.32 NG/ML (< 4.00)
[2024-03-01 20:06] LABS: IRON (FE) 197 UG/DL (65-175)
[2024-03-01 20:07] LABS: TOTAL 25(OH) VITAMIN D 53.2 NG/ML (20.0-100.0)
[2024-03-01 20:08] LABS: ALBUMIN 3.9 G/DL (3.2-5.2); ALKALINE PHOSPHATASE 72 U/L (46-116); ALT/SGPT 22 U/L (7.0-40); AST/SGOT 11 U/L (<34); BILIRUBIN,TOTAL 0.7 MG/DL (0.3-1.2); BLOOD UREA NITROGEN 14 MG/DL (9-23); CALCIUM LEVEL 9.2 MG/DL (8.3-10.6); CARBON DIOXIDE LEVEL 27 MMOL/L (20-31); CHLORIDE LEVEL 107 MMOL/L (98-107); CHOLESTEROL LEVEL 178 MG/DL (<200); CHOLESTEROL RISK RATIO 3.39 (<5); CREATININE FOR GFR 0.89 MG/DL (0.70-1.30); GLOMERULAR FILTRATION RATE > 60.0 (>49); GLUCOSE, FASTING 106 MG/DL (74-106); HDL CHOLESTEROL 52.5 MG/DL (>40); LDL CHOLESTEROL 108.3 MG/DL (<100); MAGNESIUM LEVEL 1.8 MG/DL (1.8-2.4); NON-HDL-C 125.5 MG/DL; POTASSIUM SERUM 4.3 MMOL/L (3.5-5.1); SODIUM LEVEL 137 MMOL/L (136-145); TOTAL PROTEIN 6.6 G/DL (5.7-8.2); TRIGLYCERIDES LEVEL 86 MG/DL (<150); VITAMIN B12 LEVEL 347 PG/ML (211-911)
[2024-03-01 20:20] LABS: HEMOGLOBIN A1c 5.4 % (4.0-6.0)
== END ==
LOC: M SFHCCLAY 09:54
PROVIDERS: ATTEND Nurse Practitioner Family
DX: Z98.84 Bariatric surgery status (principal); E78.2 Mixed hyperlipidemia; E11.9 Type 2 diabetes mellitus without complications; N40.0 Benign prostatic hyperplasia without lower urinary tract symptoms

== ENCOUNTER → 2024-03-15 | Outpatient (REF) | payer BC ==
[2024-03-15 11:52] LABS: FERRITIN 41.1 NG/ML (10.5-307.3); PERCENT SATURATION 37.6 % (19.7-50.0)
== END ==
LOC: M SFHCCLAY 07:47
PROVIDERS: ATTEND Nurse Practitioner Family
DX: E83.19 Other disorders of iron metabolism (principal)

== ENCOUNTER → 2024-05-15 | Outpatient (CLI) | payer BC | LOC: M CLY 15:01 | PROVIDERS: ATTEND Nurse Practitioner Family | DX: M54.59 Other low back pain (principal) ==

== ENCOUNTER → 2025-03-05 | Outpatient (REF) | payer BC ==
[~2025-03-05] MED LIST changes: -FLOM0.4C39 PO; +TAMS-18 PO
[2025-03-05 12:43] LABS: BASO # 0.1 10^3/uL (0.0-0.2); BASO % 0.8 % (0.0-1.0); EOS # 0.2 10^3/uL (0.0-0.5); EOS % 2.9 % (0.0-3.0); LYMPH # 2.6 10^3/uL (1.5-5.0); LYMPH % 34.1 % (24.0-44.0); MONO # 0.7 10^3/uL (0.0-0.8); MONO % 9.9 % (2.0-8.0); NEUTROPHILS # 3.9 10^3/uL (1.5-8.5); NEUTROPHILS % 52.0 % (36.0-66.0); PLATELET COUNT, AUTOMATED 235 10^3/uL (150-450)
[2025-03-05 12:46] LABS: IRON (FE) 124 UG/DL (65-175)
[2025-03-05 12:47] LABS: ALT/SGPT 18 U/L (7.0-40); AST/SGOT 15 U/L (<34); CALCIUM LEVEL 8.8 MG/DL (8.3-10.6); CARBON DIOXIDE LEVEL 28 MMOL/L (20-31); CHLORIDE LEVEL 104 MMOL/L (98-107); CHOLESTEROL LEVEL 159 MG/DL (<200); CHOLESTEROL RISK RATIO 2.97 (<5); CREATININE FOR GFR 0.90 MG/DL (0.70-1.30); GLOMERULAR FILTRATION RATE > 90.0 (>49); LDL CHOLESTEROL 89.0 MG/DL (<100); NON-HDL-C 105.6 MG/DL; PERCENT SATURATION 37.6 % (19.7-50.0); POTASSIUM SERUM 4.2 MMOL/L (3.5-5.1); SODIUM LEVEL 143 MMOL/L (136-145); TRIGLYCERIDES LEVEL 83 MG/DL (<150)
[2025-03-05 12:52] LABS: FREE T4 1.11 NG/DL (0.89-1.76); VITAMIN B12 LEVEL 292 PG/ML (211-911)
[2025-03-05 12:54] LABS: ESTIMATED AVERAGE GLUCOSE 108.0 MG/DL (60-110)
== END ==
LOC: M SFHCCLAY 07:15
PROVIDERS: ATTEND Nurse Practitioner Family
DX: Z00.00 Encounter for general adult medical examination without abnormal findings (principal); E78.2 Mixed hyperlipidemia; E66.01 Morbid (severe) obesity due to excess calories; N40.0 Benign prostatic hyperplasia without lower urinary tract symptoms; G47.33 Obstructive sleep apnea (adult) (pediatric); E11.9 Type 2 diabetes mellitus without complications; K22.719 Barrett's esophagus with dysplasia, unspecified; Z98.84 Bariatric surgery status; E83.19 Other disorders of iron metabolism; G25.81 Restless legs syndrome

== ENCOUNTER → 2025-03-06 | Outpatient (CLI) | payer BC | LOC: M CLY 09:11 | PROVIDERS: ATTEND Nurse Practitioner Family | DX: R07.81 Pleurodynia (principal) ==